=== PATIENT | male | born 1940 | race African-American/Black ===

== ENCOUNTER 2016-11-05 15:53 | Inpatient (IN) | payer OTHER ==
[~2016-11-05] VITALS: Ht 167.6 cm; Wt 68.9 kg
[~2016-11-05 15:53] MED LIST: ADVAIR HFA 45/21 AER INH; ALBUTEROL 3 ML3 ML INH; ALBUTEROL0.09 MG/A1 INH; ALBUTEROL2.5 MG/0.5 INH/SOL; AUGMENTIN 875 M1 TAB PO; CEFTIN500 MG PO; CETIRIZINE HCL10 M2 PO; CITALOPRAM HBR40 MG PO; CITALOPRAM HYDR40 MG PO; CYCLOBENZAPRINE5 M2 PO; DELTASONE20 MG PO; DUONEB 3 MG/3 ML3 ML INH/SOL; FLUTICASON0.05 MG/Ac NASB; HYDROCHLOROTHIA25 M1 PO; HYDRODIURIL 2525 MG PO; LEVAQUIN500 M1 PO; LEVAQUIN500 MG PO; MEDROL DOSEPAK1 PAC PO; METOPROLOL SUCC25 M1 PO; MONTELUKAST SOD10 MG PO; NAPROSYN500 M1 PO; NEBULIZER; OMEGA-3-ACID ETH1 GM PO; PEPCID20 M1 PO; PREDNISONE10 MG PO; PREDNISONE50 MG PO; PROAIR HFA0.09 MG/Ac INH; PROVENTIL HFA6.7 GM INH; SIMVASTATIN40 MG PO; SYMBICORT 16010.2 GM INH; VIAGRA100 M1 PO; ZITHROMAX Z-PA250 M1 PO; ZITHROMAX250 M2 PO
--- NOTE | 2016-11-05 16:41 | ED GENERAL ADULT ---
History of Present Illness General Chief Complaint: General Adult Stated Complaint: LOSS OF APPETITE, BLOOD IN STOOL Source: patient Exam Limitations: no limitations Vital Signs & Intake/Output Vital Signs & Intake/Output Vital Signs Date Time Temp Pulse Resp B/P B/P Pulse O2 O2 Flow FiO2 Mean Ox Delivery Rate 11/06 0400 97.9 79 20 128/70 11/06 0400 97.9 79 20 128/70 92 Room Air 11/06 0011 97.9 84 20 132/70 93 Room Air 11/06 0000 97.9 84 20 132/70 11/05 2318 98.5 90 20 140/70 20 11/05 2046 97.0 85 20 152/91 94 Room Air 11/05 1906 98.1 88 20 126/86 100 Room Air 11/05 1736 98.8 86 18 112/79 96 Room Air 11/05 1557 97.2 102 20 132/84 97 Room Air ED Intake and Output 11/06 0000 11/05 1200 Intake Total 100 Output Total Balance 100 Intake, IV 100 Intake, Oral 0 Patient 152 lb Weight Weight Reported by Patient Measurement Method Allergies Coded Allergies: aspirin (Mild, GI UPSET 03/25/16) Reconcile Medications Albuterol Sulfate (Ventolin Hfa) 90 MCG HFA.AER.AD 1-2 PUF INH Q4H PRN ASTHMA (Reported) Amlodipine Besylate 5 MG TABLET 1 TAB PO DAILY HEART/BP (Reported) Budesonide/Formoterol Fumarate (Symbicort 160-4.5 Mcg Inhaler) 160 MCG-4.5 MCG/ ACTUATION HFA.AER.AD 2 PUF INH BID ASTHMA (Reported) Cetirizine HCl 10 MG TABLET 1 TAB PO DAILY ALLERGIES (Reported) Citalopram Hydrobromide (Citalopram HBr) 40 MG TABLET 1 TAB PO DAILY MENTAL HEALTH (Reported) Famotidine (Pepcid) 20 MG TABLET 1 TAB PO BID gastritis Fluticasone Propionate 50 MCG/ACTUATION SPRAY.SUSP 2 SPRAY NASB DAILY ALLERGIES (Reported) Hydrochlorothiazide 25 MG TABLET 1 TAB PO DAILY DIURETIC/BP (Reported) Montelukast Sodium 10 MG TABLET 1 TAB PO DAILY ALLERGIES/ASTHMA (Reported) Triage Note: PT TO ED C/O LOSS APPETITE "FOR A WHILE". PT ALSO C/O BRB IN STOOL X 1 TODAY. DENIES N/V/D. DENIES PAIN. DENIES S/S. Triage Nurses Notes Reviewed? yes Onset: Abrupt Duration: week(s):, constant, continues in ED, getting worse Timing: single episode today Severity: mild, moderate No Modifying Factors: none HPI: 76-year-old male past medical history of hypertension and hyperlipidemia alcohol abuse presents complaining of decreased appetite, weight loss, fatigue and bright red blood per rectum. Patient states that over the past 6 months he lost 20 pounds unintentionally and has had decreased appetite. He feels he does not have a desire to eat but denies any nausea vomiting or pain with eating. He also reports associated fatigue and weakness. Yesterday he was having a bowel movement and noticed bright red blood in the toilet. He states that the blood appeared to be on the outside of the stool and that the stool was brown. He denies any history of hemorrhoids any constipation straining or pain with bowel movements. He states he's never had symptoms like this before. He denies any chest pain shortness of breath abdominal pain or any other associated symptoms. He states he had a colonoscopy many years ago and polyps were removed. He does not take blood thinners. (MESFIN SINGH PA-C) Past History Travel History Traveled to [place] past 21 day No Medical History Any Pertinent Medical History? see below for history Neurological: NONE EENT: allergies Cardiovascular: hypertension, hyperlipidemia Respiratory: asthma, bronchitis, pneumonia Gastrointestinal: NONE Hepatic: NONE Renal: NONE Musculoskeletal: NONE Psychiatric: NONE Endocrine: NONE Blood Disorders: NONE Cancer(s): NONE FAMILY DEVELOPMENT EXTENSION SPECIALIST/Reproductive: NONE Tetanus Vaccine: 03/26/16 Surgical History Surgical History: HAND SURGERY Psychosocial History Who do you live with Father Services at Home None What is your primary language Albanian Tobacco Use: Quit >30 days ago ETOH Use: heavy use Illicit Drug Use: denies illicit drug use Family History Family History, If Any: MOTHER FH: hypertension BROTHER FH: throat cancer Hx Contributory? No (MESFIN SINGH PA-C) Review of Systems Review of Systems Constitutional: Reports: see HPI, weakness, unexplained weight loss. EENTM: Reports: no symptoms. Respiratory: Reports: no symptoms. Cardiovascular: Reports: no symptoms. GI: Reports: see HPI, bloody stool. Genitourinary: Reports: no symptoms. Musculoskeletal: Reports: no symptoms. Skin: Reports: no symptoms. Neurological/Psychological: Reports: no symptoms. Hematologic/Endocrine: Reports: no symptoms. Immunologic/Allergic: Reports: no symptoms. All Other Systems: Reviewed and Negative (SAMANTHA PARRA,MESFIN) Physical Exam Physical Exam General Appearance: well developed/nourished, no apparent distress, alert, awake Rectal: normal rectal tone, blood streaked stool (BROWN) Comments: General: Hemodynamically stable. Afebrile. Well-developed well-nourished person in no acute distress. Head: Atraumatic, normocephalic Eyes: EOMI bilaterally, PERRLA, conjunctiva are not injected, no discharge, no nystagmus, fundus grossly normal bilaterally Nose: Atraumatic, no rhinorrhea, mucosa is not erythematous, no epistaxis. Sinuses are non-tender Ears: TM pearly flannery color bilaterally, external canal is clear, no discharge, hearing is normal Mouth: Appropriate dentition, no gingival bleeding, moist mucus membranes, no oral lesions, tonsils not erythematous or enlarged and free of exudate. Uvula rises midline. Neck: Supple, full active ROM, no lymphadenopathy, no midline tenderness to palpation, no thyromegaly, no tracheal deviation. Back: Non-tender, full active ROM, no scoliosis, no CVA tenderness Cardiovascular: regular rate and rhythm, no murmurs, rubs, or gallops. No JVD Respiratory: Chest is nontender. Regular respiratory rate and effort. No accessory muscle use. Lungs clear to auscultation bilaterally. Abdomen: Soft, non-tender, non-distended, no organomegaly. No rebound tenderness or guarding. Normoactive bowel sounds. Extremities: No edema. No gross deformities. No joint swelling. No calf swelling or tenderness. Full active and passive ROM. Strength 5/5 in upper and lower extremities. Peripheral pulses 2+ bilaterally, Patellar DTR 2+ Neuro: No confusion. Motor and sensory function is intact. Appropriate gait. Cerebellar function intact. Skin: Warm and dry. Appropriate turgor. No lesions or bruising. No appreciable rash on exposed skin. Core Measures ACS in differential dx? No CVA/TIA Diagnosis: No Severe Sepsis Present: No Septic Shock Present: No (SAMANTHA PARRA,MESFIN) Progress Differential Diagnoses I considered the following diagnoses in my evaluation of the patient: [Colon cancer, hemorrhoids, orthostatic hypotension, anemia, diverticulitis, AVM,] Plan of Care: Orders Procedure Date/time Status Nothing by Mouth 11/06 B Active CBC WITHOUT DIFFERENTIAL 11/06 06 Active BASIC ELECTROLYTES PLUS BUN&CR 11/06 06 Active Lab Add-on Test 11/06 UNK Active Hemoccult 11/05 2310 Complete CBC WITHOUT DIFFERENTIAL 11/05 2310 Complete Vital Signs 11/05 222 Active Teach/Educate 11/05 2222 Active Pain Treatment and Response 11/05 2222 Active Nutritional Intake, Monitor 11/05 2222 Active Isolation 11/05 2222 Active Intake & Output 11/05 2222 Active Patient Care Conference 11/05 2222 Active Activity/Ambulation 11/05 2222 Active Pathway - chart 11/05 2106 Active TRC EVALUATION (GEN) 11/05 2058 Active Pathway - chart 11/05 2058 Active House Staff 11/05 2058 Active TYPE & SCREEN (NOT X-MATCH) 11/05 2058 Complete Patient Data 11/05 2013 Active Add-on Test (ER Only) 11/05 182 Active OXYGEN SETUP (GEN) 11/05 182 Active Saline Lock 11/05 1822 Active Admit to inpatient 11/05 1822 Active Vital Signs 11/05 1822 Active Activity/Ambulation 11/05 1822 Active Code Status 11/05 1822 Active TOTAL IRON BINDING CAPACITY 11/05 1700 Complete MAGNESIUM 11/05 1700 Complete FERRITIN 11/05 1700 Complete SERUM IRON 11/05 1700 Complete ETHANOL 11/05 1700 Complete MISTAKE 11/05 1651 Active TROPONIN LEVEL 11/05 1651 Complete PROTHROMBIN TIME 11/05 1651 Complete COMPREHENSIVE METABOLIC PANEL 11/05 1651 Complete CBC WITHOUT DIFFERENTIAL 11/05 1651 Complete EKG 11/05 1651 Active Intake & Output 11/05 1627 Active VTE Mechanical Prophylaxis 11/05 UNK Active Vital Signs 11/05 UNK Complete Nursing Misc 11/05 UNK Active Hemoccult 11/05 UNK Active CIWA 11/05 UNK Active Current Medications Sig/Ana Start time Last Medication Dose Stop Time Status Admin Montelukast Sodium 10 MG 2200 11/06 2200 AC (Singulair) Amlodipine Besylate 5 MG DAILY 11/06 1000 CAN (Norvasc) Citalopram 40 MG DAILY 11/06 1000 AC Hydrobromide (Celexa) Fluticasone 2 SPRAY DAILY 11/06 1000 AC Propionate (Flonase) Hydrochlorothiazide 25 MG DAILY 11/06 1000 CAN (Hydrodiuril) Loratadine 10 MG DAILY 11/06 1000 AC (Claritin) Pantoprazole Sodium 40 MG DAILY 11/06 1000 AC (Protonix) Thiamine HCl 100 MG DAILY 11/06 1000 AC (Vitamin B1) Lorazepam 0 Q1P PRN 11/06 0045 AC (Ativan) Lorazepam 1 MG BID 11/05 2309 AC 11/06 (Ativan) 0047 Albuterol Sulfate 2 PUF Q4 11/05 2199 CAN (Ventolin) Budesonide/ 2 PUF BID 11/05 2200 AC 11/06 Formoterol Fumarate 0047 (Symbicort) Acetaminophen 650 MG Q6P PRN 11/05 2114 AC (Tylenol) Acetaminophen 1,000 MG Q6 PRN 11/05 2114 AC (Ofirmev) Morphine Sulfate 2 MG Q4P PRN 11/05 2114 AC (Morphine) Sodium Chloride 1,000 ML .Q10H 11/05 2100 AC 11/05 (Normal Saline 0.9%) 2226 Albuterol Sulfate 3 ML ONCE ONE 11/05 2029 CAN (Proventil) 11/05 2030 Ipratropium [place] 2.5 ML ONCE ONE 11/05 2029 CAN (Atrovent) 11/05 2030 Laboratory Tests 11/06/16 0625: Sodium Pending, Potassium Pending, Chloride Pending, Carbon Dioxide Pending, Anion Gap Pending, BUN Pending, Creatinine Pending, BUN/Creatinine Ratio Pending , CBC w Diff Pending, WBC Pending, RBC Pending, Hgb Pending, Hct Pending, MCV Pending, MCH Pending, RDW Pending, Plt Count Pending, MPV Pending, PUBS MCHC Pending 11/06/16 0140: CBC w Diff NO MAN DIFF REQ, RBC 4.37 L, MCV 92.9, MCH 31.1 H, RDW 14.5, MPV 9.0, Gran % 59.4, Lymphocytes % 29.3, Monocytes % 8.5, Eosinophils % 2.2, Basophils % 0.6, Absolute Granulocytes 2.6, Absolute Lymphocytes 1.3, Absolute Monocytes 0.4, Absolute Eosinophils 0.1, Absolute Basophils 0, PUBS MCHC 33.5 11/05/16 1700: Anion Gap 10, Estimated GFR > 60, BUN/Creatinine Ratio 22.5, Glucose 98, Calcium 9.7, Magnesium 2.1, Iron 180, TIBC 272, Ferritin 95.0, Total Bilirubin 0.8, AST 67 H, ALT 46, Alkaline Phosphatase 115, Troponin I < 0.01, Total Protein 7.2, Albumin 4.3, Globulin 2.9, Albumin/Globulin Ratio 1.5, PT 10.2, INR 0.97, CBC w Diff NO MAN DIFF REQ, RBC 4.63 L, MCV 93.5, MCH 30.6, RDW 14.7 H, MPV 8.9, Gran % 67.9, Lymphocytes % 19.9 L, Monocytes % 9.9 H, Eosinophils % 1.5, Basophils % 0.8, Absolute Granulocytes 3.0, Absolute Lymphocytes 0.9 L, Absolute Monocytes 0.4, Absolute Eosinophils 0.1, Absolute Basophils 0, PUBS MCHC 32.8 L, Serum Alcohol < 10.0 5 PM: Patient seen and evaluated. He has gross blood on the rectal exam no signs of hemorrhoids. He'll have basic blood work orthostatics EKG and troponin. Patient is orthostatic. He'll be given a liter normal saline. This plus the bright red blood per rectum is concerning for GI bleed . Patient will have a CT scan of his abdomen and pelvis with contrast to rule out colon cancer or diverticulitis. Patient will likely require admission due to bright red blood per rectum and orthostasis. GI will be called called for their input. Spoke with Dr. Chau from GI. He feels that the patient will be okay to go to the floor. His vital signs are currently stable he only had one episode he is asymptomatic. patient needs to be monitored if there is any concern for further bleeding he needs to go to ICU and be scoped immediately otherwise it can wait until Monday. HospitalisT paged. Case discussed with Dr. TAMAYO and he agrees with the plan (SAMANTHA PARRA,MESFIN) Diagnostic Imaging: Viewed by Me: CT Scan. Discussed w/RAD: CT Scan. Initial ED EKG: sinus rhythm, borderline t abn anterior leads, borderline prolonged qt Comments: PATIENT: TYSON FLORES SR PRESENT AGE: 76 PATIENT ACCOUNT NO: [id number] : 41 LOCATION: [facility] ORDERING PHYSICIAN: MESFIN SINGH PA-C SERVICE DATE: 11/05/16 EXAM TYPE: CAT - CT ABD & PELVIS W IV CONTRAST EXAMINATION: CT ABDOMEN AND PELVIS with CONTRAST CLINICAL INFORMATION: Hematochezia.] Orthostasis. Weight loss. Colon cancer. Diverticulitis. COMPARISON: CT pelvis 09/26/2015 TECHNIQUE: Helical CT scan of abdomen and pelvis. IV contrast: 95 mL Optiray 320 Oral contrast: None Reconstruction: Coronal and sagittal reformatted images performed at CT scanner by the technologist. FINDINGS: LUNG BASES: The visualized lung bases are unremarkable. LIVER, GALLBLADDER, AND BILIARY TREE: 2 cm hepatic cyst central right lobe of liver. No suspicious liver lesion. The gallbladder is unremarkable with no evidence of radiopaque gallstones, gallbladder wall thickening, or obvious pericholecystic inflammatory changes. PANCREAS: No acute change of the pancreas. No mass. No pancreatic duct dilatation. SPLEEN: Spleen normal in size and contour. No focal lesion. ADRENAL GLANDS: Adrenal glands are normal in size. No focal mass. KIDNEYS AND URETERS: 2.7 cm renal cyst midpole right kidney. No renal or ureteral calculus. No hydronephrosis. BLADDER: Unremarkable. GASTROINTESTINAL TRACT: The small and large bowel are unremarkable. No diverticula of the colon. The appendix is unremarkable. MESENTERY: No focal inflammation. No free fluid. No free air. ABDOMINAL WALL: Surgical mass right inguinal region. No recurrent hernia. LYMPH NODES: Normal. VASCULAR: Aorta is tortuous with calcification of wall. No aneurysm. PELVIC VISCERA: Prostate measures 5.2 cm transverse. OSSEOUS STRUCTURES: Unremarkable. IMPRESSION: No acute abnormality CT scan abdomen pelvis. DICTATED BY: DONNA AMARO MD DATE/TIME DICTATED:11/05/161845 AIR DUCT MECHANIC:JI DATE/TIME TRANSCRIBED:11/05/161845 (SAMANTHA PARRA,MESFIN) Departure Departure Disposition: STILL A PATIENT Condition: Stable Clinical Impression Primary Impression: Orthostatic hypotension Secondary Impressions: Lower GI bleed Referrals: ZACH ALEXANDER MD (PCP/Family) Departure Forms: Customer Survey General Discharge Information Admission Note Spoke With: LITZY COUGHLIN MD Documentation of Exam: Documentation of any treatments & extenuating circumstances including Concerns Regarding Discharge (functional status, medication knowledge or non-compliance, living conditions, etc.) that warrant an admission rather than observation: [ Serial labs, GI consult, IV fluids, monitoring of vital signs, tilt table test, colonoscopy] (MESFIN SINGH PA-C) PA/POULTRY SEXER Co-Sign Statement Statement: ED Attending supervision documentation- x I saw and evaluated the patient. I have also reviewed all the pertinent lab results and diagnostic results. I agree with the findings and the plan of care as documented in the PA's/POULTRY SEXER's documentation. [] I have reviewed the ED Record and agree with the PA's/POULTRY SEXER's documentation. [] Additions or exceptions (if any) to the PAs/POULTRY SEXER's note and plan are summarized below: [] (RONI GLOVER,MANUELITO) Critical Care Note Critical Care Note Critical Care Time: non-applicable (MESFIN SINGH PA-C)
[2016-11-05 17:15] LABS: ABSOLUTE BASOPHIL COUNT 0 /CUMM (0.0-0.2); ABSOLUTE EOSINOPHIL COUNT 0.1 /CUMM (0.0-0.7); ABSOLUTE LYMPH COUNT 0.9 /CUMM (1.2-3.4); ABSOLUTE MONOCYTE COUNT 0.4 /CUMM (0.10-0.60); BASOPHIL % 0.8 % (0.0-2.0); EOSINOPHIL % 1.5 % (0-5); GRANULOCYTE % 67.9 % (42.2-75.2); HEMATOCRIT 43.3 % (42-52); MEAN CORPUSCULAR HGB 30.6 PG (27.0-31.0); MEAN CORPUSCULAR HGB CONC 32.8 G/DL (33.0-37.0); MEAN CORPUSCULAR VOLUME 93.5 FL (80.0-94.0); MEAN PLATELET VOLUME 8.9 FL (7.4-10.4); PLATELET COUNT 168 /CUMM (130-400); RBC DISTRIBUTION WIDTH 14.7 % (11.5-14.5); RED BLOOD CELL CT 4.63 /CUMM (4.70-6.10); WHITE BLOOD CELL COUNT 4.5 /CUMM (4.8-10.8)
[2016-11-05 17:18] LABS: PT 10.2 SEC (9.4-12.5)
[2016-11-05] MEDS ORDERED: FLUTICASONE PRO16 GM NASB (17:43)
[2016-11-05] MEDS ORDERED: VENTOLIN HFA18 GM INH (17:43)
[2016-11-05] MEDS ORDERED: SYMBICORT 16010.2 GM INH (17:44)
[2016-11-05] MEDS ORDERED: AMLODIPINE BESYL5 M1 PO (17:45)
[2016-11-05] MEDS ORDERED: MONTELUKAST SOD10 M1 PO (17:45)
[2016-11-05] MEDS ORDERED: CETIRIZINE HCL10 M2 PO (17:45)
--- NOTE | 2016-11-05 18:58 | CT SCAN REPORT ---
EXAMINATION: CT ABDOMEN AND PELVIS with CONTRAST CLINICAL INFORMATION: Hematochezia.] Orthostasis. Weight loss. Colon cancer. Diverticulitis. COMPARISON: CT pelvis 09/26/2015 TECHNIQUE: Helical CT scan of abdomen and pelvis. IV contrast: 95 mL Optiray 320 Oral contrast: None Reconstruction: Coronal and sagittal reformatted images performed at CT scanner by the technologist. FINDINGS: LUNG BASES: The visualized lung bases are unremarkable. LIVER, GALLBLADDER, AND BILIARY TREE: 2 cm hepatic cyst central right lobe of liver. No suspicious liver lesion. The gallbladder is unremarkable with no evidence of radiopaque gallstones, gallbladder wall thickening, or obvious pericholecystic inflammatory changes. PANCREAS: No acute change of the pancreas. No mass. No pancreatic duct dilatation. SPLEEN: Spleen normal in size and contour. No focal lesion. ADRENAL GLANDS: Adrenal glands are normal in size. No focal mass. KIDNEYS AND URETERS: 2.7 cm renal cyst midpole right kidney. No renal or ureteral calculus. No hydronephrosis. BLADDER: Unremarkable. GASTROINTESTINAL TRACT: The small and large bowel are unremarkable. No diverticula of the colon. The appendix is unremarkable. MESENTERY: No focal inflammation. No free fluid. No free air. ABDOMINAL WALL: Surgical mass right inguinal region. No recurrent hernia. LYMPH NODES: Normal. VASCULAR: Aorta is tortuous with calcification of wall. No aneurysm. PELVIC VISCERA: Prostate measures 5.2 cm transverse. OSSEOUS STRUCTURES: Unremarkable. IMPRESSION: No acute abnormality CT scan abdomen pelvis.
--- NOTE | 2016-11-05 20:33 | History & Physical ---
CHARMAINE PASCUAL MD 11/05/162031: General Information and HPI MD Statement: I have seen and personally examined TYSON FLORES SR and documented this H&P. The patient is a 76 year old M who presented with a patient stated chief complaint of [bright red blood per rectum]. Source of Information: patient, family, old records History of Present Illness: Pt is a 76 yo male with a pmh significant for HTN, hyperlipidemia, COPD, GERD, alcohol abuse, internal hemerrhoids. He presented to ED complaining of one episode of blood coated stool yesterday afternoon. The pt reports that he had no associated abdominal pain, but did strain more than usual during this bowel movement. He has had one BM since then with no blood on the stool, or on tissue paper. Pt denies any nausea, vomiting, fever, chills, constipation, diarrhea, chest pain, palipitations, shortness of breath, or abdominal pain. He is complaining of a mild headache, but claims he gets them regularly and this is not out of the ordinary. He drinks alcohol everyday, up to 2 bottles of vodka per day, and as per daughter, the weightloss began when his drinking increased, and he began drinking as a substitute for his meals. He is an everyday smoker. Allergies/Medications Allergies: Coded Allergies: aspirin (Mild, GI UPSET 03/25/16) Home Med list Albuterol Sulfate (Ventolin Hfa) 90 MCG HFA.AER.AD 1-2 PUF INH Q4H PRN ASTHMA (Reported) Amlodipine Besylate 5 MG TABLET 1 TAB PO DAILY HEART/BP (Reported) Budesonide/Formoterol Fumarate (Symbicort 160-4.5 Mcg Inhaler) 160 MCG-4.5 MCG/ ACTUATION HFA.AER.AD 2 PUF INH BID ASTHMA (Reported) Cetirizine HCl 10 MG TABLET 1 TAB PO DAILY ALLERGIES (Reported) Citalopram Hydrobromide (Citalopram HBr) 40 MG TABLET 1 TAB PO DAILY MENTAL HEALTH (Reported) Famotidine (Pepcid) 20 MG TABLET 1 TAB PO BID gastritis Fluticasone Propionate 50 MCG/ACTUATION SPRAY.SUSP 2 SPRAY NASB DAILY ALLERGIES (Reported) Hydrochlorothiazide 25 MG TABLET 1 TAB PO DAILY DIURETIC/BP (Reported) Montelukast Sodium 10 MG TABLET 1 TAB PO DAILY ALLERGIES/ASTHMA (Reported) Past History Travel History Traveled to [place] past 21 day No Medical History Neurological: NONE EENT: allergies Cardiovascular: hypertension, hyperlipidemia Respiratory: asthma, bronchitis, COPD, pneumonia Gastrointestinal: GERD Hepatic: NONE Renal: NONE Musculoskeletal: NONE Psychiatric: NONE Endocrine: NONE Blood Disorders: NONE Cancer(s): NONE 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 Denies: chills, diaphoresis, fever, malaise, weakness. EENTM: Reports: visual changes, nasal congestion. Denies: eye pain, throat pain. Cardiovascular: Denies: chest pain, palpitations, syncope. Respiratory: Denies: cough, hemoptysis, short of breath. GI: Reports: bloody stool. Denies: abdominal pain, constipation, diarrhea, distention, melena, nausea, vomiting. Genitourinary: Denies: dysuria, hematuria, nocturia. Musculoskeletal: Denies: joint pain, joint swelling, muscle pain. Skin: Denies: change in skin color, erythema, lesions. Neurological/Psychological: Reports: headache. Denies: numbness, tingling. Exam & Diagnostic Data Last 24 Hrs of Vital Signs/I&O Vital Signs Date Time Temp Pulse Resp B/P B/P Pulse O2 O2 Flow FiO2 Mean Ox Delivery Rate 11/05 2046 97.0 85 20 152/91 94 Room Air 11/05 1906 98.1 88 20 126/86 100 Room Air 11/05 1736 98.8 86 18 112/79 96 Room Air 11/05 1557 97.2 102 20 132/84 97 Room Air Intake & Output 11/05 1600 11/05 0800 11/05 0000 Intake Total Output Total Balance Patient 152 lb Weight Weight Estimated Measurement Method Physical Exam General Appearance Alert, Oriented X3, Cooperative, No Acute Distress Skin No Rashes, No Breakdown, No Significant Lesion Skin Temp/Moisture Exam: Warm/Dry Sepsis Skin Exam (color): Normal for Ethnicity HEENT Atraumatic, PERRLA, EOMI, mucous membrane is slightly dry, poor dentition Neck Supple, No JVD Lymphatic Cervical nl Cardiovascular Regular Rate, Normal S1, No Murmurs Lungs Clear to Auscultation, Normal Air Movement Abdomen Normal Bowel Sounds, Soft, No Tenderness, No Hepatospenomegaly, No Masses Neurological Normal Speech, Strength at 5/5 X4 Ext, Sensation Intact, Cranial Nerves 3-12 NL Extremities No Clubbing, No Cyanosis, No Edema, Normal Pulses, No Tenderness/ Swelling Vascular Normal Pulses, Pulses Symmetrical Sepsis Peripheral Pulse Location: Dorsalis Pedis Sepsis Peripheral Pulse Exam: Normal Sepsis Cap Refill Exam: <2 Sec Rectal Guiac Negative, No Fissures, No Hemorrhoids Last 24 Hrs of Labs/Casey: Laboratory Tests 11/05/16 1700: Anion Gap 10, Estimated GFR > 60, BUN/Creatinine Ratio 22.5, Glucose 98, Calcium 9.7, Magnesium 2.1, Total Bilirubin 0.8, AST 67 H, ALT 46, Alkaline Phosphatase 115, Troponin I < 0.01, Total Protein 7.2, Albumin 4.3, Globulin 2.9, Albumin/ Globulin Ratio 1.5, PT 10.2, INR 0.97, CBC w Diff NO MAN DIFF REQ, RBC 4.63 L, MCV 93.5, MCH 30.6, RDW 14.7 H, MPV 8.9, Gran % 67.9, Lymphocytes % 19.9 L, Monocytes % 9.9 H, Eosinophils % 1.5, Basophils % 0.8, Absolute Granulocytes 3.0, Absolute Lymphocytes 0.9 L, Absolute Monocytes 0.4, Absolute Eosinophils 0.1, Absolute Basophils 0, PUBS MCHC 32.8 L, Serum Alcohol < 10.0 Diagnostic Data EKG Results sinus rhythm [place] 164 QT 408 QTC [address] ABDOMEN AND PELVIS with CONTRAST IMPRESSION: No acute abnormality CT scan abdomen pelvis. Assessment/Plan Assessment: Pt is a 76 yo male with a pmh significant for HTN, hyperlipidemia, COPD, GERD, alcohol abuse, internal hemerrhoids. He presented to ED complaining of one episode of blood coated stool yesterday afternoon. no associated abdominal pain, but did strain more than usual during this bowel movement. Pt denies any nausea , vomiting, fever, chills, constipation, diarrhea, chest pain, palipitations, shortness of breath, or abdominal pain. #Bright Red Blood Per Rectum, possibly due to diverticulosis or internal hemorrhoids, H/H 14.2/43.3, But pt is orthostatic positive B/P Lying 141/87 Pulse 84,B/P Sitting 143/83 Pulse 84, B/P Standing 107/75 Pulse 93. Must reassess after rehydration. varicies unlikely due to lack of history of melena or hematemisis. CT abdomen was normal. - Admit to Gen med - NPO - trend CBC - consult GI in the morning - IVF 100ml/hr, 1 L - guiac all stools - Iron Studies - type and screen - two wide bore IV peripherally #alcohol abuse AST 67, ALT 46. Drinks 1-2 bottles of vodka daily, has been skipping meals. - CIWA protocol - ativan 1 mg PO BID - thaimine 200 mg PO 1x, 100 mg daily starting tomorrow #DVT Prophylaxis - ALPs #Code status - Full Code As Ranked By This Provider Problem List: 1. Rectal bleeding 2. Alcohol abuse Core Measures/Miscellaneous Acute Coronary Syndrome ACS Diagnosis: No Cerebrovascular Accident CVA/TIA Diagnosis: No Congestive Heart Failure CHF Diagnosis: No VTE (View Protocol) VTE Risk Factors: Age > 40, Smoking No [facility] VTE prophylaxis d/t: No contraindications No VTE Pharm Prophylaxis d/t: Active bleeding VTE Diagnosis: No VTE Type: NONE VTE Confirmed by (Test): NONE Sepsis (View Protocol) Severe Sepsis Present: No Septic Shock Septic Shock Present: No Miscellaneous Documentation Attending Case Discussed With: LITZY COUGHLIN MD Primary Care Physician: ZACH ALEXANDER MD Patient sees these Specialists Dr. Bustos, Cardiology Level of Patient Care: General Medicine Consults Needed: Consulting Specialty: General Internal Medicine LITZY COUGHLIN 11/05/16 2301: Attending Review Statement Attending Statement Attending MD Statement: examined this patient, discuss w/resident/PA/WINDOW SHADE CLOTH SEWER, agreed w/resident/PA/WINDOW SHADE CLOTH SEWER, reviewed EMR data (avail), reviewed images, amended to note Attending Assessment/Plan: CC: Bright red blood in stool PMH: HTN, HLD, allergies, COPD, alcohol use Patient came to ER after one episode of right red blood in his stool. Patient denied any abdominal pain, chest pain, dizziness, palpitations, syncope, presyncope before or after this episode. Patient never had similar complaints in the past. Patient did not have any black colored stool, vomiting, blood in vomiting in the past. Patient endorses loss of appetite since a while and weight loss which is unintentional. He denies any night sweats. Last colonoscopy was few years back according to him when they found some polyps. Patient drinks vodka every day, does not quantify. Vitals: Afebrile, pulse 102 on arrival improved to 86, RR 20, blood pressure 132 /84, saturating well on room air. Orthostatic vitals: B/P Lying 141/87 Pulse 84 B/P Sitting 143/83 Pulse 84 B/P Standing 107/75 Pulse 93 On exam: A O 3, cooperative, no acute distress, neck supple, JVD normal, no lymphadenopathy, mucosa moist, no focal neurological deficit, no dependent edema , no obvious skin rashes or inflammation CVS: S1-S2, RRR. RS: Clear to auscultate bilaterally. Abdomen: Soft, NT, ND, bowel sounds present., ? Questionable fluid thrill Rectal examination done in ER: gross blood on the rectal exam no signs of hemorrhoids. Repeat rectal : negative for blood and FOBT negative. Labs: WBC 4.5, hemoglobin 14.2, hematocrit 43.3, RDW 14.7, MCV 93.5, platelets 165, sodium 137, potassium 3.4, chloride 96, bicarbonate 30, BUN 18, creatinine 0.8, anion gap 10, AST 63 otherwise LFT unremarkable, troponin less than 0.01, INR 0.97, all called level less than 10 CT abdomen and pelvis: No acute abnormality CT scan abdomen pelvis. A and P 76 year old male presented in ER for one episode of bright red blood in stool, not associated with any cramping abdominal pain before or after bloody bowel movement. Not associated with palpitation, chest pain, dizziness, syncope or presyncope. No history of black colored stool or recurrent vomiting with blood or black colored contained. Patient endorses gradual weight loss which is unintentional and decreased appetite. Patient drinks vodka every day, doesn't quantify. Examination is unremarkable except orthostatic vitals positive for hypotension, rectal examination done by ER staff positive for blood. Even though patient's hemoglobin and hematocrit is normal for now he might drop down after IV fluids, but he does not have any microcytosis or increased RDW, suggestive of not a chronic blood loss. GI was called from ER. Given his history of alcohol, chronic weight loss and loss of appetite he would benefit from EGD and colonoscopy, inpatient versus outpatient. Last colonoscopy 2010 polyps were removed benign. No stigmata of cirrhosis, mild transaminitis, INR and albumin normal. + Lower GI bleed + Orthostatic hypotension + alcoholism + History of HTN, HLD, allergies, COPD, alcohol use - Admit to general medicine - Continue gentle hydration - Type and screen 2 units of PRBC - 2 wide bore peripheral IV lines - Nothing by mouth - troponin and Ekg x1 (repat in 6 hour to r/o demand) - IV Protonix 40 mg daily - Hold home antihypertensives, continue rest of the medications - Repeat H&H 6 hours from the previous lab, Then repeat labs in the a.m. - Transfuse if hypotensive or drop in H&H below 8 - GI consult in a.m. - Iron studies with ferritin, TIBC, transferrin, iron - Ativan 1 mg po Bid for tomorrow : taper down if not actively withdrawing - PRN Ativan according to CIWA protocol - replace thiamine and potassium - DVT prophylaxis with Alps only JAZIEL SAAVEDRA MD 11/06/16 0005: Resident Review Statement Resident Statement: examined this patient, discussed with epidemiology internship, agreed with epidemiology internship, discussed with family, reviewed EMR data (avail), discussed with nursing , reviewed images Other Findings: 76-year-old male with past medical history of internal hemorrhoids, H pylori gastritis, antral gastritis, hypertension, hyperlipidemia, alcohol abuse, anxiety, COPD, seasonal allergies, presented to the emergency department for 1 episode of bright red blood per rectum and anorexia, weight loss and fatigue. Patient had one episode of painless bowel movement with bright red blood over the stool, not mixed with it yesterday, not associated with pain abdomen, nausea , vomiting, fever, chills, sick contacts, abdominal distention. His last cancer screening colonoscopy was in February 2011, which showed internal hemorrhoid, polyp that was excised, and some diverticulosis. His last upper GI endoscopy was in 2016, which showed gastritis and no varices, both were done in by Dr Christoph Mcallister, but he does not follow him anymore. In the ED, his pulse was 102, blood pressure 132/84, respiration 20, temperature 97.2 and SPO2 97% on room air. His pulse at the time of examination was 88. He appeared stable with relatively benign physical examination. Digital rectal examination done by the ED staff was guaiac-positive, however done by the admitting staff was negative. CT abdomen does not show any extensive diverticulosis, mass, or obviopus source of bleeding. Patient received 1 L of normal saline, IV PPI, nebulization, in the ED. He did not notice blood in his stool pain he had a bowel movement in the ED. He is currently being admitted in the general medical floor for the management of following issues: #Lower GI bleeding, bright red blood per rectum Patient gives history of bright red blood per rectum, indicating floor GI bleeding, with stable vitals. CT abdpmen/pelvis is negative. His orthostatics were positive in the ED, and first set of H&H was within normal limits, but this could be due to hemoconcentration. He will require close monitoring and repeat lab works. * Close monitoring of vitals, and watch for bleeding per rectum * Input-output monitoring * Repeat CBC 6 hours after the initial one and again in the morning * Have 2 large bore IV cannula in place in anticipation * Type and screen blood in anticipation * Nothing by mouth for now for bowel rest * IV fluid at 100 mL per hour, monitor for now. To reassess in the morning * IV PPI pantoprazole 40 mg IV daily * Iron studies * Guaiac all stool, given there was radiation in findings in the last examination. Stop examining stool for blood after 2 readings. * GI consultation in the morning #History of alcohol abuse Patient gives history of daily alcohol/vodka consumption of 1 L in the last drink was yesterday. We'll have to monitor for withdrawal symptoms. * Watch patient for symptoms of alcohol withdrawal according to CIWA protocol * Oral lorazepam 1 mg every 12 hours for now * 1 dose of thiamine 100 mg orally now and 100 mg daily to continue #Continue home medications of which is montelucast, cetrizine, citalopram, Symbicort and add TRC. #Antihypertensives on hold. #Diet: NPO for now, will reasses in AM #DVT ppx: ALPS only, considering ongoing bleeding #Code status: Full code
--- NOTE | 2016-11-05 23:03 | Admission Certification ---
Admission Certification Certification Statement - As attending physician, I certify that at the time of - admission, based on clinical presentation, severity of - symptoms, need for further diagnostic testing and - therapeutic interventions, and risk of adverse outcomes - without in-hospital treatment, in my clinical assessment, - this patient requires an acute hospital stay for a minimum - of two nights or longer. I have also considered psychsocial - factors such as support system, advanced age, financial - issues, cognitive issues, and failed out-patient treatments, - past re-admission history, safety of patient, and lack of - compliance as applicable. Specific rationale supporting this admission is: GI bleed
[2016-11-05 23:18] VITALS: BP 140/70
[2016-11-06] VITALS: BP 132/70
[2016-11-06 00:11] VITALS: BP 132/70
[2016-11-06 01:52] LABS: ABSOLUTE BASOPHIL COUNT 0 /CUMM (0.0-0.2); ABSOLUTE EOSINOPHIL COUNT 0.1 /CUMM (0.0-0.7); ABSOLUTE GRANULOCYTE CT 2.6 /CUMM (1.4-6.5); ABSOLUTE LYMPH COUNT 1.3 /CUMM (1.2-3.4); ABSOLUTE MONOCYTE COUNT 0.4 /CUMM (0.10-0.60); BASOPHIL % 0.6 % (0.0-2.0); EOSINOPHIL % 2.2 % (0-5); GRANULOCYTE % 59.4 % (42.2-75.2); HEMATOCRIT 40.6 % (42-52); MEAN CORPUSCULAR HGB 31.1 PG (27.0-31.0); MEAN CORPUSCULAR HGB CONC 33.5 G/DL (33.0-37.0); MEAN CORPUSCULAR VOLUME 92.9 FL (80.0-94.0); PLATELET COUNT 172 /CUMM (130-400); RBC DISTRIBUTION WIDTH 14.5 % (11.5-14.5); RED BLOOD CELL CT 4.37 /CUMM (4.70-6.10); WHITE BLOOD CELL COUNT 4.3 /CUMM (4.8-10.8)
[2016-11-06 04:00] VITALS: BP 128/70
[2016-11-06 07:51] LABS: ABSOLUTE BASOPHIL COUNT 0 /CUMM (0.0-0.2); ABSOLUTE EOSINOPHIL COUNT 0.1 /CUMM (0.0-0.7); ABSOLUTE GRANULOCYTE CT 2.4 /CUMM (1.4-6.5); ABSOLUTE MONOCYTE COUNT 0.4 /CUMM (0.10-0.60); HEMATOCRIT 38.5 % (42-52); MEAN CORPUSCULAR HGB 31.2 PG (27.0-31.0); MEAN CORPUSCULAR HGB CONC 33.3 G/DL (33.0-37.0); MEAN CORPUSCULAR VOLUME 93.6 FL (80.0-94.0); MEAN PLATELET VOLUME 9.6 FL (7.4-10.4); PLATELET COUNT 150 /CUMM (130-400); RBC DISTRIBUTION WIDTH 14.4 % (11.5-14.5); RED BLOOD CELL CT 4.11 /CUMM (4.70-6.10); WHITE BLOOD CELL COUNT 3.9 /CUMM (4.8-10.8)
[2016-11-06 08:12] LABS: BASOPHIL % 0.9 % (0.0-2.0); EOSINOPHIL % 2.6 % (0-5); GRANULOCYTE % 61.9 % (42.2-75.2)
--- NOTE | 2016-11-06 10:22 | PN- Housestaff ---
See Addendum Subjective Follow-up For: Gi bleed, EtOH Subjective: No over night events. He is feeling ok this morning, hungry. He had one episode of bright red blood per rectum last night. Was not significant amount though. No complaints. Review of Systems Constitutional: Reports: no symptoms. EENTM: Reports: no symptoms. Cardiovascular: Reports: no symptoms. Respiratory: Reports: no symptoms. Gastrointestinal: Reports: see HPI. Genitourinary: Reports: no symptoms. Musculoskeletal: Reports: no symptoms. Skin: Reports: no symptoms. Neurological/Psychological: Reports: no symptoms. Hematologic/Endocrine: Reports: no symptoms. Immunologic/Allergic: Reports: no symptoms. Objective Last 24 Hrs of Vital Signs/I&O Vital Signs Date Time Temp Pulse Resp B/P B/P Pulse O2 O2 Flow FiO2 Mean Ox Delivery Rate 11/06 0940 Room Air Room Air 11/06 0400 97.9 79 20 128/70 11/06 0400 97.9 79 20 128/70 92 Room Air 11/06 0011 97.9 84 20 132/70 93 Room Air 11/06 0000 97.9 84 20 132/70 11/05 2318 98.5 90 20 140/70 20 11/05 2046 97.0 85 20 152/91 94 Room Air 11/05 1906 98.1 88 20 126/86 100 Room Air 11/05 1736 98.8 86 18 112/79 96 Room Air 11/05 1557 97.2 102 20 132/84 97 Room Air Intake & Output 11/06 1600 11/06 0800 11/06 0000 Intake Total 1160 100 Output Total Balance 1160 100 Intake, IV 800 100 Intake, Oral 360 0 Number 1 Bowel Movements Patient 152 lb Weight Weight Reported by Patient Measurement Method Physical Exam General Appearance: Alert, Oriented X3, Cooperative, No Acute Distress, Mild Distress Cardiovascular: Regular Rate, Normal S1, Normal S2 Lungs: Clear to Auscultation Abdomen: Normal Bowel Sounds, Soft, No Tenderness Extremities: No Edema Current Medications: Current Medications Sig/Ana Start time Last Medication Dose Route Stop Time Status Admin Acetaminophen 650 MG Q6P PRN 11/05 2114 AC PO Acetaminophen 1,000 MG Q6 PRN 11/05 2114 AC IV Albuterol Sulfate 2 PUF Q4 11/05 2199 CAN INH Albuterol Sulfate 3 ML ONCE ONE 11/05 2044 DC 11/05 INH 11/05 Albuterol Sulfate 3 ML ONCE ONE 11/05 2030 CAN INH 11/05 2030 Amlodipine Besylate 5 MG DAILY 11/06 1000 CAN PO Budesonide/ 2 PUF BID 11/05 2200 AC 11/06 Formoterol Fumarate INH 0846 Citalopram 40 MG DAILY 11/06 1000 AC 11/06 Hydrobromide PO 0847 Fluticasone 2 SPRAY DAILY 11/06 1000 AC 11/06 Propionate BENJAMIN 0848 Hydrochlorothiazide 25 MG DAILY 11/06 1000 CAN PO Ipratropium [place] 2.5 ML ONCE ONE 11/05 2044 DC 11/05 INH 11/05 Ipratropium [place] 2.5 ML ONCE ONE 11/05 2029 CAN INH 11/05 2030 Loratadine 10 MG DAILY 11/06 1000 AC 11/06 PO 0847 Lorazepam 0 Q1P PRN 11/06 0045 AC IV Lorazepam 1 MG .STK-MED ONE 11/06 0006 DC PO 11/06 0007 Lorazepam 1 MG BID 11/05 2309 AC 11/06 PO 0848 Montelukast Sodium 10 MG 2200 11/060 AC PO Morphine Sulfate 2 MG Q4P PRN 11/05 2115 AC IV Pantoprazole Sodium 40 MG DAILY 11/06 1000 AC 11/06 IV 0844 Pantoprazole Sodium 40 MG ONCE ONE 11/05 1830 DC 11/05 IV 11/05 1831 1903 Potassium Chloride 40 MEQ ONCE ONE 11/06 0045 DC 11/06 PO 11/06 0046 0051 Sodium Chloride 1,000 ML .Q10H 11/05 2100 AC 11/06 IV 0844 Sodium Chloride 1,000 ML BOLUS ONE 11/05 1715 DC 11/05 IV 11/05 1814 1720 Thiamine HCl 100 MG DAILY 11/06 1000 AC 11/06 PO 0847 Thiamine HCl 200 MG ONCE ONE 11/05 2359 DC 11/06 PO 11/06 0000 0047 Last 24 Hrs of Lab/Casey Results Last 24 Hrs of Labs/Mics: Laboratory Tests 11/06/16 0625: Anion Gap 7, Estimated GFR > 60, BUN/Creatinine Ratio 12.9, CBC w Diff NO MAN DIFF REQ, RBC 4.11 L, MCV 93.6, MCH 31.2 H, RDW 14.4, MPV 9.6, Gran % 61.9, Lymphocytes % 25.2, Monocytes % 9.4 H, Eosinophils % 2.6, Basophils % 0.9, Absolute Granulocytes 2.4, Absolute Lymphocytes 1.0 L, Absolute Monocytes 0.4, Absolute Eosinophils 0.1, Absolute Basophils 0, PUBS MCHC 33.3 11/06/16 0140: CBC w Diff NO MAN DIFF REQ, RBC 4.37 L, MCV 92.9, MCH 31.1 H, RDW 14.5, MPV 9.0, Gran % 59.4, Lymphocytes % 29.3, Monocytes % 8.5, Eosinophils % 2.2, Basophils % 0.6, Absolute Granulocytes 2.6, Absolute Lymphocytes 1.3, Absolute Monocytes 0.4, Absolute Eosinophils 0.1, Absolute Basophils 0, PUBS MCHC 33.5 11/05/16 1700: Anion Gap 10, Estimated GFR > 60, BUN/Creatinine Ratio 22.5, Glucose 98, Calcium 9.7, Magnesium 2.1, Iron 180, TIBC 272, Ferritin 95.0, Total Bilirubin 0.8, AST 67 H, ALT 46, Alkaline Phosphatase 115, Troponin I < 0.01, Total Protein 7.2, Albumin 4.3, Globulin 2.9, Albumin/Globulin Ratio 1.5, PT 10.2, INR 0.97, CBC w Diff NO MAN DIFF REQ, RBC 4.63 L, MCV 93.5, MCH 30.6, RDW 14.7 H, MPV 8.9, Gran % 67.9, Lymphocytes % 19.9 L, Monocytes % 9.9 H, Eosinophils % 1.5, Basophils % 0.8, Absolute Granulocytes 3.0, Absolute Lymphocytes 0.9 L, Absolute Monocytes 0.4, Absolute Eosinophils 0.1, Absolute Basophils 0, PUBS MCHC 32.8 L, Serum Alcohol < 10.0 Assessment/Plan Assessment: Pt is a 76 yo male with a pmh significant for HTN, hyperlipidemia, COPD, GERD, alcohol abuse, internal hemerrhoids presented to ED complaining of one episode of blood coated stool yesterday afternoon. no associated abdominal pain, but did strain more than usual during this bowel movement. #Bright Red Blood Per Rectum, possibly due to diverticulosis or internal hemorrhoids. GI has seen him and they will do a colonoscopy tomorrow. He'll get 2 Dulcolax after supper tonight, half a gallon of GoLYTELY, another half a gallon of GoLYTELY in the morning. Iron studies are normal. CT abdomen and pelvis negative. -Full liquids diet -Appreciate GI recommendations -CBC every 12 hours #alcohol abuse AST 67, ALT 46. Drinks 1-2 bottles of vodka daily, has been skipping meals.: CIWA 0 this morning,-24 hours is 2. - CIWA protocol - ativan 1 mg PO BID. Consider tapering this. - thaimine 100 mg daily #DVT Prophylaxis - ALPs #Code status - Full Code Problem List: 1. Rectal bleeding Pain Ratin Pain Location: no pain Pain Goal: Remain pain free Pain Plan: see a/p Tomorrow's Labs & Rationales: nuno obrien Consulting Request: Consulting Specialty: General Internal Medicine
--- NOTE | 2016-11-06 11:23 | Cons- Gastroenterology ---
General Information and HPI Consulting Request Date of Consult: 11/06/16 Requested By: LITZY COUGHLIN MD Reason for Consult: Rectal bleeding, weigth loss. Source of Information: patient, old records Exam Limitations: no limitations History of Present Illness: Mr. Champion is a 76 year old male with a PMH significant for HTN, hyperlipidemia , asthma and etoh abuse who presented to yesterday afternoon with reports of rectal bleeding and weight loss. He notes that after going to the bathroom the night before presentation to the ER had a bowel movement that was coated with blood which was something that he hasn't previously noticed. The bleeding was not associated with any abdominal pain. He also denies any abdominal pain with eating, heartburn, dysphagia or vomiting. He has had a poor appetite over the past few months and this has resulted in a 20 lb wt loss over that time period. He has not had any black tarry stool. He came to the ER yesterday afternoon and was found to have a hgb of 14 and to have some blood on rectal exam and he was admitted to the medical service for orthostatic hypotension that he had in the ER and improved with IVF. Since admission he has been hemodynamically stable. He has had a fall in his hgb to around 12 and he did have another bloody bowel movement last night which also had some blood in it, but he notes it wasn't as much as the night before. A ct scan done int the ER was unremarkable. Allergies/Medications Allergies: Coded Allergies: aspirin (Mild, GI UPSET 03/25/16) Home Med List: Albuterol Sulfate (Ventolin Hfa) 90 MCG HFA.AER.AD 1-2 PUF INH Q4H PRN ASTHMA (Reported) Amlodipine Besylate 5 MG TABLET 1 TAB PO DAILY HEART/BP (Reported) Budesonide/Formoterol Fumarate (Symbicort 160-4.5 Mcg Inhaler) 160 MCG-4.5 MCG/ ACTUATION HFA.AER.AD 2 PUF INH BID ASTHMA (Reported) Cetirizine HCl 10 MG TABLET 1 TAB PO DAILY ALLERGIES (Reported) Citalopram Hydrobromide (Citalopram HBr) 40 MG TABLET 1 TAB PO DAILY MENTAL HEALTH (Reported) Famotidine (Pepcid) 20 MG TABLET 1 TAB PO BID gastritis Fluticasone Propionate 50 MCG/ACTUATION SPRAY.SUSP 2 SPRAY [place] DAILY ALLERGIES (Reported) Hydrochlorothiazide 25 MG TABLET 1 TAB PO DAILY DIURETIC/BP (Reported) Montelukast Sodium 10 MG TABLET 1 TAB PO DAILY ALLERGIES/ASTHMA (Reported) Phenyleph/Mineral Oil/Petrolat (Preparation H Ointment) 0.25 %-14 %-74.9 % OINT.APPL 1 DANIEL TOP BID PRN Hemorrhoids . Current Medications: Current Medications Sig/Ana Start time Last Medication Dose Route Stop Time Status Admin Acetaminophen 650 MG Q6P PRN 11/05 2114 AC PO Acetaminophen 1,000 MG Q6 PRN 11/05 2114 AC IV Albuterol Sulfate 2 PUF Q4 11/05 2199 CAN INH Albuterol Sulfate 3 ML ONCE ONE 11/05 2044 DC 11/05 INH 11/05 Albuterol Sulfate 3 ML ONCE ONE 11/05 2029 CAN INH 11/05 2030 Amlodipine Besylate 5 MG DAILY 11/06 1000 CAN PO Budesonide/ 2 PUF BID 11/05 2199 AC 11/06 Formoterol Fumarate INH 0846 Citalopram 40 MG DAILY 11/06 1000 AC 11/06 Hydrobromide PO 0847 Fluticasone 2 SPRAY DAILY 11/06 1000 AC 11/06 Propionate BENJAMIN 0848 Hydrochlorothiazide 25 MG DAILY 11/06 1000 CAN PO Ipratropium [place] 2.5 ML ONCE ONE 11/05 2044 DC 11/05 INH 11/05 Ipratropium [place] 2.5 ML ONCE ONE 11/05 2030 CAN INH 11/05 2030 Loratadine 10 MG DAILY 11/06 1000 AC 11/06 PO 0847 Lorazepam 0 Q1P PRN 11/06 0045 AC IV Lorazepam 1 MG .STK-MED ONE 11/06 0006 DC PO 11/06 0007 Lorazepam 1 MG BID 11/05 2309 AC 11/06 PO 0848 Montelukast Sodium 10 MG 2200 11/06 2199 AC PO Morphine Sulfate 2 MG Q4P PRN 11/05 2114 AC IV Pantoprazole Sodium 40 MG DAILY 11/06 1000 AC 11/06 IV 0844 Pantoprazole Sodium 40 MG ONCE ONE 11/05 1830 DC 11/05 IV 11/05 183 1903 Potassium Chloride 40 MEQ ONCE ONE 11/06 0045 DC 11/06 PO 11/06 0046 0051 Sodium Chloride 1,000 ML .Q10H 11/05 2100 AC 11/06 IV 0844 Sodium Chloride 1,000 ML BOLUS ONE 11/05 1715 DC 11/05 IV 11/05 1814 1720 Thiamine HCl 100 MG DAILY 11/06 1000 AC 11/06 PO 0847 Thiamine HCl 200 MG ONCE ONE 11/05 2359 DC 11/06 PO 11/06 0000 0047 Past History Travel History Traveled to [place] past 21 day No Medical History Neurological: NONE EENT: allergies Cardiovascular: hypertension, hyperlipidemia Respiratory: asthma, bronchitis, COPD, pneumonia Gastrointestinal: GERD Hepatic: NONE Renal: NONE Musculoskeletal: NONE Psychiatric: NONE Endocrine: NONE Blood Disorders: NONE Cancer(s): NONE CERAMIC TILER/Reproductive: NONE Surgical History Surgical History: HAND SURGERY Family History Relations & Conditions If Any: MOTHER FH: hypertension BROTHER FH: throat cancer Psychosocial History Services at Home: None Smoking Status: Never Smoked ETOH Use: heavy use Illicit Drug Use: denies illicit drug use Review of Systems Review of Systems Constitutional: Reports: malaise, weakness, unexplained weight loss. Denies: diaphoresis, fever. EENTM: Denies: no symptoms. Cardiovascular: Denies: no symptoms. Respiratory: Denies: no symptoms. GI: Reports: see HPI. Genitourinary: Denies: no symptoms. Musculoskeletal: Denies: no symptoms. Skin: Denies: no symptoms. Neurological/Psychological: Denies: no symptoms. Hematologic/Endocrine: Reports: bleeding. Immunologic/Allergic: Denies: no symptoms. All Other Systems: Reviewed and Negative Exam & Diagnostic Data Vital Signs and I&O Vital Signs Date Time Temp Pulse Resp B/P B/P Pulse O2 O2 Flow FiO2 Mean Ox Delivery Rate 11/06 0940 Room Air Room Air 11/06 0400 97.9 79 20 128/70 11/06 0400 97.9 79 20 128/70 92 Room Air 11/06 0011 97.9 84 20 132/70 93 Room Air 11/06 0000 97.9 84 20 132/70 11/05 2318 98.5 90 20 140/70 20 11/05 2046 97.0 85 20 152/91 94 Room Air 11/05 1906 98.1 88 20 126/86 100 Room Air 11/05 1736 98.8 86 18 112/79 96 Room Air 11/05 1557 97.2 102 20 132/84 97 Room Air Intake & Output 11/06 0400 11/05 0400 11/04 0400 Intake Total 1160 100 Output Total Balance 1160 100 Intake, IV 800 100 Intake, Oral 360 0 Number 1 Bowel Movements Patient 152 lb 152 lb Weight Weight Reported by Patient Estimated Measurement Method Physical Exam General Appearance: well developed/nourished, no apparent distress, alert, comfortable Head: atraumatic, normal appearance Eyes: Bilateral: normal appearance. Ears, Nose, Throat: normal pharynx, normal ENT inspection, hearing grossly normal Neck: normal inspection, supple, full range of motion Respiratory: normal breath sounds, chest non-tender, no respiratory distress Cardiovascular: regular rate/rhythm Rectal: deferred, red blood in vault without masses or external hemorrhoids per ED Back: normal inspection, normal range of motion Extremities: normal inspection, normal capillary refill, normal range of motion, no edema Neurologic/Psych: no motor/sensory deficits, awake, alert, oriented x 3 Results Pertinent Lab Results: Laboratory Tests 11/06 11/06 0625 0140 Chemistry Sodium (137 - 145 mmol/L) 133 L Potassium (3.5 - 5.1 mmol/L) 3.4 L Chloride (98 - 107 mmol/L) 101 Carbon Dioxide (22 - 30 mmol/L) 25 Anion Gap (5 - 16) 7 BUN (9 - 20 mg/dL) 9 Creatinine (0.7 - 1.2 mg/dL) 0.7 Estimated GFR (>60 ml/min) > 60 BUN/Creatinine Ratio (7 - 25 %) 12.9 Hematology CBC w Diff NO MAN DIFF REQ NO MAN DIFF REQ WBC (4.8 - 10.8 /CUMM) 3.9 L 4.3 L RBC (4.70 - 6.10 /CUMM) 4.11 L 4.37 L Hgb (14.0 - 18.0 G/DL) 12.8 L 13.6 L Hct (42 - 52 %) 38.5 L 40.6 L MCV (80.0 - 94.0 FL) 93.6 92.9 MCH (27.0 - 31.0 PG) 31.2 H 31.1 H RDW (11.5 - 14.5 %) 14.4 14.5 Plt Count (130 - 400 /CUMM) 150 172 MPV (7.4 - 10.4 FL) 9.6 9.0 Gran % (42.2 - 75.2 %) 61.9 59.4 Lymphocytes % (20.5 - 51.1 %) 25.2 29.3 Monocytes % (1.7 - 9.3 %) 9.4 H 8.5 Eosinophils % (0 - 5 %) 2.6 2.2 Basophils % (0.0 - 2.0 %) 0.9 0.6 Absolute Granulocytes (1.4 - 6.5 /CUMM) 2.4 2.6 Absolute Lymphocytes (1.2 - 3.4 /CUMM) 1.0 L 1.3 Absolute Monocytes (0.10 - 0.60 /CUMM) 0.4 0.4 Absolute Eosinophils (0.0 - 0.7 /CUMM) 0.1 0.1 Absolute Basophils (0.0 - 0.2 /CUMM) 0 0 PUBS MCHC (33.0 - 37.0 G/DL) 33.3 33.5 11/05 1700 Chemistry Sodium (137 - 145 mmol/L) 137 Potassium (3.5 - 5.1 mmol/L) 3.4 L Chloride (98 - 107 mmol/L) 96 L Carbon Dioxide (22 - 30 mmol/L) 30 Anion Gap (5 - 16) 10 BUN (9 - 20 mg/dL) 18 Creatinine (0.7 - 1.2 mg/dL) 0.8 Estimated GFR (>60 ml/min) > 60 BUN/Creatinine Ratio (7 - 25 %) 22.5 Glucose (65 - 99 mg/dL) 98 Calcium (8.4 - 10.2 mg/dL) 9.7 Magnesium (1.6 - 2.3 mg/dL) 2.1 Iron (49 - 181 ug/dL) 180 TIBC (261 - 462 ug/dL) 272 Ferritin (17.9 - 464 ng/mL) 95.0 Total Bilirubin (0.2 - 1.3 mg/dL) 0.8 AST (17 - 59 U/L) 67 H ALT (21 - 72 U/L) 46 Alkaline Phosphatase (< 127 U/L) 115 Troponin I (<0.11 ng/ml) < 0.01 Total Protein (6.3 - 8.2 g/dL) 7.2 Albumin (3.5 - 5.0 g/dL) 4.3 Globulin (1.9 - 4.2 gm/dL) 2.9 Albumin/Globulin Ratio (1.1 - 2.2 %) 1.5 Coagulation PT (9.4 - 12.5 SEC) 10.2 INR (0.90 - 1.17) 0.97 Hematology CBC w Diff NO MAN DIFF REQ WBC (4.8 - 10.8 /CUMM) 4.5 L RBC (4.70 - 6.10 /CUMM) 4.63 L Hgb (14.0 - 18.0 G/DL) 14.2 Hct (42 - 52 %) 43.3 MCV (80.0 - 94.0 FL) 93.5 MCH (27.0 - 31.0 PG) 30.6 RDW (11.5 - 14.5 %) 14.7 H Plt Count (130 - 400 /CUMM) 168 MPV (7.4 - 10.4 FL) 8.9 Gran % (42.2 - 75.2 %) 67.9 Lymphocytes % (20.5 - 51.1 %) 19.9 L Monocytes % (1.7 - 9.3 %) 9.9 H Eosinophils % (0 - 5 %) 1.5 Basophils % (0.0 - 2.0 %) 0.8 Absolute Granulocytes (1.4 - 6.5 /CUMM) 3.0 Absolute Lymphocytes (1.2 - 3.4 /CUMM) 0.9 L Absolute Monocytes (0.10 - 0.60 /CUMM) 0.4 Absolute Eosinophils (0.0 - 0.7 /CUMM) 0.1 Absolute Basophils (0.0 - 0.2 /CUMM) 0 PUBS MCHC (33.0 - 37.0 G/DL) 32.8 L Toxicology Serum Alcohol (<10 MG/DL) < 10.0 Imaging/Other Studies: SERVICE DATE: 11/05/16 EXAM TYPE: CAT - CT ABD & PELVIS W IV CONTRAST EXAMINATION: CT ABDOMEN AND PELVIS with CONTRAST CLINICAL INFORMATION: Hematochezia.] Orthostasis. Weight loss. Colon cancer. Diverticulitis. COMPARISON: CT pelvis 09/26/2015 TECHNIQUE: Helical CT scan of abdomen and pelvis. IV contrast: 95 mL Optiray 320 Oral contrast: None Reconstruction: Coronal and sagittal reformatted images performed at CT scanner by the technologist. FINDINGS: LUNG BASES: The visualized lung bases are unremarkable. LIVER, GALLBLADDER, AND BILIARY TREE: 2 cm hepatic cyst central right lobe of liver. No suspicious liver lesion. The gallbladder is unremarkable with no evidence of radiopaque gallstones, gallbladder wall thickening, or obvious pericholecystic inflammatory changes. PANCREAS: No acute change of the pancreas. No mass. No pancreatic duct dilatation. SPLEEN: Spleen normal in size and contour. No focal lesion. ADRENAL GLANDS: Adrenal glands are normal in size. No focal mass. KIDNEYS AND URETERS: 2.7 cm renal cyst midpole right kidney. No renal or ureteral calculus. No hydronephrosis. BLADDER: Unremarkable. GASTROINTESTINAL TRACT: The small and large bowel are unremarkable. No diverticula of the colon. The appendix is unremarkable. MESENTERY: No focal inflammation. No free fluid. No free air. ABDOMINAL WALL: Surgical mass right inguinal region. No recurrent hernia. LYMPH NODES: Normal. VASCULAR: Aorta is tortuous with calcification of wall. No aneurysm. PELVIC VISCERA: Prostate measures 5.2 cm transverse. OSSEOUS STRUCTURES: Unremarkable. IMPRESSION: No acute abnormality CT scan abdomen pelvis. Assessment/Plan Assessment/Recommendations: Assessment: Mr. Champion is a 76 year old male who presents with painless rectal bleeding which I suspect is likely secondary to hemorrhoids. He did have diverticulosis on his last colonoscopy in 2010 so a diverticular bleed is also possible considering the bleeding is painless, but he is not currentlly behaving as a diverticular bleed. Other potential etiologies of the rectal bleeding could be bleeding from an AVM (although this is usually occult), bleeding from a dieulafoys lesion or from an occult malignancy or large polyp, but if the later was the case I would of expected his ct scan to show some bowel wall abnormality and in reviewing his prior colonoscopy biopsies he doesn't appear to have had any adenomatous polyps in the past. Bleeding from colitis, ischemic, inflammatory or infectious is also unlikely without any pain or any bowel wall inflammation on ct scan and an upper transit upper GI bleed is unlikely as he is too stable for this. While he should have a repeat colonoscopy to further evaluate the bleeding this isn't urgent and can safely be pursued in the morning or possibly even as an outpatient. He also should have an EGD to further evaluate his weight loss, but this also can likely be pursued as an outpatient. As he is likely going to be admitted for at least another day I will tentaively plan to pursue the endoscopic work up tomorrow. Recommendations: 1. Full liquid diet with nothing red for now. 2. After a liquid supper would administer 2 dulcolax tablets followed by a 1/2 gallon of colyte tonight and anther 1/2 gallon of colyte early tomorrow morning (around 5-6am) and would then keep NPO after midnignt in anticipation of a diagnostic/therapeutic colonscopy to be done tomorrow 3. Maintain 2 large bore IVs at all times 4. Follow CBC q12hrs and transfuse as needed to keep hgb > 8 5. Notify GI for signs of hemodynamically significant GI bleeding and if this occurs will transfer the pt to the ICU and expedite the endoscopic work up 6. D/C IV protonix 7. Monitor for signs of etoh withdrawal and treat with benzodiazepenes as needed. I will continue to follow this patient and make further recommendations based on his clinical course and the results of his endoscopic work up that is tentatively scheduled for tomorrow. Problem List: 1. Rectal bleeding 2. Lower GI bleed 3. Alcoholic gastritis Consult Acknowledgment - Thank you for your consult request.
[2016-11-06 14:47] VITALS: BP 125/90
[2016-11-06 18:58] LABS: ABSOLUTE BASOPHIL COUNT 0 /CUMM (0.0-0.2); ABSOLUTE EOSINOPHIL COUNT 0.1 /CUMM (0.0-0.7); ABSOLUTE GRANULOCYTE CT 3.2 /CUMM (1.4-6.5); ABSOLUTE MONOCYTE COUNT 0.4 /CUMM (0.10-0.60); BASOPHIL % 0.5 % (0.0-2.0); EOSINOPHIL % 2.9 % (0-5); GRANULOCYTE % 66.8 % (42.2-75.2); MEAN CORPUSCULAR HGB 30.8 PG (27.0-31.0); MEAN CORPUSCULAR HGB CONC 32.8 G/DL (33.0-37.0); MEAN CORPUSCULAR VOLUME 93.8 FL (80.0-94.0); MEAN PLATELET VOLUME 9.6 FL (7.4-10.4); PLATELET COUNT 156 /CUMM (130-400); RBC DISTRIBUTION WIDTH 14.6 % (11.5-14.5); RED BLOOD CELL CT 4.05 /CUMM (4.70-6.10); WHITE BLOOD CELL COUNT 4.9 /CUMM (4.8-10.8)
[2016-11-06 21:36] VITALS: BP 130/70
[2016-11-07 06:02] VITALS: BP 128/72
--- NOTE | 2016-11-07 07:19 | PN- Housestaff ---
See Addendum Subjective Follow-up For: Lower GI bleed, EtOH Subjective: No overnight events. He is prepping for colonoscopy and having significant diarrhea as expected. He is also complaining of congestion related to his allergies, asking for nasal spray. Otherwise, no complaints. Review of Systems Constitutional: Reports: no symptoms. EENTM: Reports: see HPI. Cardiovascular: Reports: no symptoms. Respiratory: Reports: no symptoms. Gastrointestinal: Reports: see HPI. Genitourinary: Reports: no symptoms. Musculoskeletal: Reports: no symptoms. Skin: Reports: no symptoms. Neurological/Psychological: Reports: no symptoms. Hematologic/Endocrine: Reports: no symptoms. Immunologic/Allergic: Reports: no symptoms. Objective Last 24 Hrs of Vital Signs/I&O Vital Signs Date Time Temp Pulse Resp B/P B/P Pulse O2 O2 Flow FiO2 Mean Ox Delivery Rate 11/07 0602 98.4 79 20 128/72 91 Room Air 11/06 2136 98.9 85 20 130/70 93 Room Air 11/06 1447 98.8 88 20 125/90 98 11/06 0940 Room Air Room Air Intake & Output 11/07 0800 11/07 0000 11/06 1600 Intake Total 2400 400 Output Total 501 Balance 2400 -101 Intake, IV 400 400 Intake, Oral 2000 Output, Stool 1 Output, Urine 500 Physical Exam General Appearance: Alert, Oriented X3, Cooperative, No Acute Distress Cardiovascular: Regular Rate, Normal S1, Normal S2 Lungs: Clear to Auscultation Abdomen: Normal Bowel Sounds, Soft, No Tenderness Extremities: No Edema Current Medications: Current Medications Sig/Ana Start time Last Medication Dose Route Stop Time Status Admin Acetaminophen 650 MG Q6P PRN 11/05 2114 AC PO Acetaminophen 1,000 MG Q6 PRN 11/05 2114 AC IV Bisacodyl 10 MG ONE TIME ONE 11/06 2100 DC 11/06 PO 11/06 2101 2207 Budesonide/ 2 PUF BID 11/05 2199 AC 11/06 Formoterol Fumarate INH 2209 Citalopram 40 MG DAILY 11/06 1000 AC 11/06 Hydrobromide PO 0847 Fluticasone 2 SPRAY DAILY 11/06 1000 AC 11/06 Propionate BENJAMIN 0848 Loratadine 10 MG DAILY 11/06 1000 AC 11/06 PO 0847 Lorazepam 0 Q1P PRN 11/06 0045 AC IV Lorazepam 1 MG BID 11/05 2308 AC 11/06 PO 2208 Montelukast Sodium 10 MG 2200 11/06 2199 AC 11/06 PO 2208 Morphine Sulfate 2 MG Q4P PRN 11/05 2114 IV Pantoprazole Sodium 40 MG DAILY 11/06 1000 DC 11/06 IV 0844 Polyethylene Glycol 0.5 GAL ONCE ONE 11/07 0600 DC 11/07 PO 11/07 0601 0557 Polyethylene Glycol 0.5 GAL ONCE ONE 11/06 2100 DC 11/06 PO 11/06 2101 211 Potassium Chloride 40 MEQ ONCE ONE 11/06 1445 DC 11/06 PO 11/06 1446 1555 Sodium Chloride 1,000 ML .Q10H 11/05 2100 AC 11/07 IV 0006 Thiamine HCl 100 MG DAILY 11/06 1000 AC 11/06 PO 0847 Last 24 Hrs of Lab/Casey Results Last 24 Hrs of Labs/Mics: Laboratory Tests 11/06/161758: CBC w Diff NO MAN DIFF REQ, RBC 4.05 L, MCV 93.8, MCH 30.8, RDW 14.6 H, MPV 9.6, Gran % 66.8, Lymphocytes % 20.9, Monocytes % 8.9, Eosinophils % 2.9, Basophils % 0.5, Absolute Granulocytes 3.2, Absolute Lymphocytes 1.0 L, Absolute Monocytes 0.4, Absolute Eosinophils 0.1, Absolute Basophils 0, PUBS MCHC 32.8 L Assessment/Plan Assessment: Pt is a 76 yo male with a pmh significant for HTN, hyperlipidemia, COPD, GERD, alcohol abuse, internal hemerrhoids presented to ED complaining of one episode of blood coated stool yesterday afternoon. no associated abdominal pain, but did strain more than usual during this bowel movement. #Bright Red Blood Per Rectum, possibly due to diverticulosis or internal hemorrhoids. GI has seen him and they will do a colonoscopy today. -MP until colonoscopy, appreciate GI recommendations for postprocedure care -Daily CBC #alcohol abuse AST 67, ALT 46. Drinks 1-2 bottles of vodka daily, has been skipping meals.: CIWA 0 this morning,-24 hours is 2. - CIWA protocol - ativan 1 mg PO BID. Consider tapering this. - thaimine 100 mg daily #DVT Prophylaxis - ALPs #Code status - Full Code Problem List: 1. Lower GI bleed Pain Ratin Pain Location: no pain Pain Goal: Remain pain free Pain Plan: see a/p Tomorrow's Labs & Rationales: nuno obrien Consulting Request: Consulting Specialty: General Internal Medicine
[2016-11-07 10:56] LABS: ABSOLUTE BASOPHIL COUNT 0 /CUMM (0.0-0.2); ABSOLUTE EOSINOPHIL COUNT 0.1 /CUMM (0.0-0.7); ABSOLUTE GRANULOCYTE CT 2.6 /CUMM (1.4-6.5); ABSOLUTE MONOCYTE COUNT 0.3 /CUMM (0.10-0.60); BASOPHIL % 0.8 % (0.0-2.0); EOSINOPHIL % 3.5 % (0-5); GRANULOCYTE % 63.1 % (42.2-75.2); HEMATOCRIT 37.9 % (42-52); MEAN CORPUSCULAR HGB 30.9 PG (27.0-31.0); MEAN CORPUSCULAR HGB CONC 32.9 G/DL (33.0-37.0); MEAN PLATELET VOLUME 9.5 FL (7.4-10.4); PLATELET COUNT 156 /CUMM (130-400); RBC DISTRIBUTION WIDTH 14.6 % (11.5-14.5); RED BLOOD CELL CT 4.03 /CUMM (4.70-6.10); WHITE BLOOD CELL COUNT 4.1 /CUMM (4.8-10.8)
--- NOTE | 2016-11-07 13:29 | Proc Note Endoscopy ---
Endoscopy Procedure Medical History: unchanged (see [facility] consult 11/07/16) Mental Status: alert/oriented Heart/Lung Eval Prior to Sedation: within normal limits Candidate for Sedation? Yes Procedure Date: 11/07/16 Procedure Type: EGD w/biopsy Seed Laboratory Assistant: James Chau MD ASA Classification: III Indications: Wt loss. Instrument: diagnostic gastroscope Meds Received: MAC Patient's Tolerance: good Complications: none Extent Reached: second part of duodenum Procedure: After getting written informed consent the patient was placed in the left lateral decubitus position with pulse oximetry, cardiac monitoring, and supplemental oxygen given. A bite block was inserted and IV sedation was given until the desired effect was achieved. A high definition upper Olympus endoscope was then inserted into the mouth and advanced to the second portion of the duodenum with little difficulty. Retroflexed views and photodocumentation was obtained. Findings: Esophagus: The esophageal mucosa was grossly normal appearance and there was a normal-appearing Z line at 40 cm from the incisors. There were no esophageal strictures, ulcers, masses, varices, or long tongues of salmon-colored mucosa appreciated. Stomach: The gastric mucosa was atrophic in appearance and diffusely mildly erythematous, but there were no ulcers, erosions, or masses appreciated. Distention and peristalsis of the stomach appeared normal. Retroflexed views revealed a small hiatal hernia. Random biopsies were obtained from the antrum with cold biopsy forceps and were sent to pathology for further evaluation. Duodenum: The duodenal bulb, sweep, and folds were grossly normal in appearance. Impression: 1. Atrophic gastritis status post antral biopsies. 2. Small hiatal hernia. Recommendations: 1. He should use H2 RA's or [id number] PPIs as needed for dyspeptic symptoms or heartburn. 2. He should follow an antireflux regimen. 3. He should follow up the pathology results me as an outpatient. 4. He should avoid or minimize use of NSAIDs. CC: BENJAMIN GLOVER,ZACH
--- NOTE | 2016-11-07 13:53 | Proc Note Colonoscopy ---
Colonoscopy Procedure Medical History: unchanged (see [facility] consult 11/07/16) Mental Status: alert/oriented Heart/Lung Eval Prior to Sedation: within normal limits Candidate for Sedation? Yes Date of Last Colonoscopy: 2010 Procedure Date: 11/07/16 Procedure Type: colonoscopy Bone Drier Operator: James Chau MD ASA Classification: III Indications: Rectal bleeding. Instrument (Colonoscope): single channel Meds Received: MAC Patient's Tolerance: good Complications: none Extent Reached: cecum Prep: good Procedure: After getting written informed consent the patient was placed in the left lateral decubitus position with pulse oximetry, cardiac monitoring, and supplemental oxygen was given. IV sedation was given until the desired effect was achieved. A rectal exam was performed which was normal. A high definition variable stiffness Olympus colonoscope was then inserted into the anus and advanced to the cecum with little difficulty. Retroflexed views were obtained in both the right colon and rectum and photodocumentation was obtained. Close inspection of the colonic mucosa was performed on insertion and withdrawal of the colonoscope with a withdrawal time that was adequate in length to closely inspect all folds and zhang of the colon. Findings: The visualized colonic mucosa including views of the rectum, sigmoid, descending , transverse, ascending colon and cecum were grossly unremarkable. There were no polyps, masses, ulcers, significant erythematous changes, or diverticula appreciated. Retroflexed views in the rectum revealed prominent, inflamed internal hemorrhoids. Retroflexed views in the right colon did not reveal any polyps. In spite of multiple attempts the terminal ileum was not intubated. There was bile appreciated throughout to the cecum and there was no blood seen anywhere in the colon. Impression: 1. Grossly normal colonoscopy without evidence of active bleeding. 2. Prominent, inflamed internal hemorrhoids. Recommendations: 1. He should be advanced a high-fiber diet as tolerated. 2. If there are no other active issues consideration given to discharge the patient home later today or in the a.m. 3. He should administer local/topical care for hemorrhoidal bleeding as needed. 4. As he did not have any adenomatous polyps on this exam is currently 76 years of age would not recommend any further routine colonoscopies. CC: BENJAMIN GLOVER,ZACH
--- NOTE | 2016-11-07 14:33 | Discharge Summary ---
Visit Information Visit Dates Admission Date: 11/05/16 Discharge Date: 11/08/16 Hospital Course Course Attending Physician: JONNY GUERRERO MD Primary Care Physician: ZACH ALEXANDER MD Consulting Request: Consulting Specialty: General Internal Medicine Hospital Course: Mr. Champion is a 76 yo male with a pmh significant for HTN, hyperlipidemia, COPD , GERD, alcohol abuse, internal hemerrhoids presented to ED complaining of one episode of blood coated stool. On presentation, vital signs were T 97.2, HR 102, RR 20, blood pressure 132/84, satting 97% on room air. Laboratories were significant for white blood cell count 4.5, 9.9% monocytes, potassium 3.4, chloride 96, AST 67, ALT 46. CT imaging showed no acute abnormality. He was admitted to general medicine treated for the following problems: 1. Bright red blood per rectum 2. Atrophic gastritis status post antral biopsies 3. Alcohol abuse #Bright Red Blood Per Rectum: This was likely due to internal hemorrhoids. He did receive a colonoscopy and endoscopy that showed no evidence of active bleeding and prominent inflamed internal hemorrhoids. There was also atrophic gastritis. Antral biopsies were taken. He should follow up with GI in 1 week for pathology results. The colonoscopy also showed a small hiatal hernia which he can follow-up with his PCP for. He should be on a high-fiber diet, use a H2 huang or PPI as needed for reflux, and avoid NSAIDs going forward. #alcohol abuse: Slight transaminitis on presentation with history of drinking 1- 2 bottles of vodka daily and skipping meals. He was placed on CIWA protocol on standing Ativan. He was also given thiamine supplements. His Ativan was tapered. He did not have high scores on the CIWA protocol. He should consider abstaining from alcohol in the future and eating more. Allergies: Coded Allergies: aspirin (Mild, GI UPSET 03/25/16) Significant Procedures: Colonoscopy: Impression: 1. Grossly normal colonoscopy without evidence of active bleeding. 2. Prominent, inflamed internal hemorrhoids. Recommendations: 1. He should be advanced a high-fiber diet as tolerated. 2. If there are no other active issues consideration given to discharge the patient home later today or in the a.m. 3. He should administer local/topical care for hemorrhoidal bleeding as needed. 4. As he did not have any adenomatous polyps on this exam is currently 76 years of age would not recommend any further routine colonoscopies. Endoscopy: Impression: 1. Atrophic gastritis status post antral biopsies. 2. Small hiatal hernia. Recommendations: 1. He should use H2 RA's or obxv-fke-[id number] PPIs as needed for dyspeptic symptoms or heartburn. 2. He should follow an antireflux regimen. 3. He should follow up the pathology results me as an outpatient. 4. He should avoid or minimize use of NSAIDs. Disposition Summary Disposition Principal Diagnosis: Internal hemorrhoids Additional Diagnosis: Atrophic gastritis, small hiatal hernia, alcohol abuse Discharge Disposition: home health services Discharge Instructions General Discharge Information Code Status: Full Code Patient's Diet: High-fiber diet Patient's Activity: As tolerated Follow-Up Instructions/Appts: Please follow up with GI in 1 week. Please follow up with your PCP in 1 week. Please take all medications as directed. Please avoid NSAIDs goign forward. Medications at Discharge Discharge Medications: Continue taking these medications: Citalopram Hydrobromide (Citalopram HBr) 40 MG TABLET 1 Tablet ORAL DAILY Qty = 90 Comments: Last Taken: 11/08/16 Time: 0800 AM Hydrochlorothiazide (Hydrochlorothiazide) 25 MG TABLET 1 Tablet ORAL DAILY Qty = 90 Comments: NOT GIVEN IN HOSPITAL Famotidine (Pepcid) 20 MG TABLET 1 Tablet ORAL TWICE DAILY Qty = 60 Comments: Last Taken: 11/08/16 Time: 1100 AM Fluticasone Propionate (Fluticasone Propionate) 50 MCG/ACTUATION SPRAY.SUSP 2 [place] Both sides of nose DAILY Qty = 16 Comments: Last Taken: 11/08/16 Time: 0800 AM Albuterol Sulfate (Ventolin Hfa) 90 MCG HFA.AER.AD 1-2 Puff Inhale through mouth Q4H as needed for ASTHMA Qty = 18 Comments: NOT GIVEN IN HOSPITAL Budesonide/Formoterol Fumarate (Symbicort 160-4.5 Mcg Inhaler) 160 MCG-4.5 MCG/ ACTUATION HFA.AER.AD 2 Puff Inhale through mouth TWICE DAILY Qty = 10 Comments: Last Taken: 11/08/16 Time: 0800 AM Amlodipine Besylate (Amlodipine Besylate) 5 MG TABLET 1 Tablet ORAL DAILY Qty = 90 Comments: NOT GIVEN IN HOSPITAL Montelukast Sodium (Montelukast Sodium) 10 MG TABLET 1 Tablet ORAL DAILY Qty = 90 Comments: Last Taken: 11/07/16 Time: 2100 PM Cetirizine HCl (Cetirizine HCl) 10 MG TABLET 1 Tablet ORAL DAILY Qty = 90 Comments: NOT GIVEN IN HOSPITAL Start taking the following new medications: Phenyleph/Mineral Oil/Petrolat (Preparation H Ointment) 0.25 %-14 %-74.9 % OINT.APPL 1 Application On the skin TWICE DAILY as needed for Hemorrhoids Qty = 1 No Refills Instructions: . Comments: NOT GIVEN IN HOSPITAL Copies To: BENJAMIN GLOVER,ZACH; CLAIRE GLOVER,ARNEL Attending MD Review Statement Documenting Attending: CESAR GLOVER,JONNY Davies Other Findings: please see my separate attending note for more details.
--- NOTE | 2016-11-07 15:00 | Patient Discharge Instructions ---
Discharge Instructions General Discharge Information You were seen/treated for: Internal hemorrhoids Atrophic gastritis You had these procedures: Endoscopy and Colonoscopy Watch for these problems: Recurrence of bloody stool, fevers, chills, dizziness, generalized weakness Special Instructions: Please follow-up with your digital commentator Dr. Chau within 2 weeks for pathology results. Please take all medications as directed. Please avoid/minimize the use of NSAIDs. Please continue with high-fiber diet. Please abstain from alcohol. Diet Continue normal diet: Yes Recommended Diet: high-fiber Activity Full Activity/No Limits: Yes Acute Coronary Syndrome Inclusion Criteria At DC or during hospital stay patient has or had the following: ACS DIAGNOSIS No Discharge Core Measures Meds if any: Prescribed or Continued at Discharge Meds if any: NOT Prescribed or Continued at Discharge Congestive Heart Failure Inclusion Criteria At DC or during hospital stay patient has or had the following: CHF DIAGNOSIS No Discharge Core Measures Meds if any: Prescribed or Continued at Discharge Meds if any: NOT Prescribed or Continued at Discharge Cerebrovascular accident Inclusion Criteria At DC or during hospital stay patient has or had the following: CVA/TIA Diagnosis No Discharge Core Measures Meds if any: Prescribed or Continued at Discharge Meds if any: NOT Prescribed or Continued at Discharge Venous thromboembolism Inclusion Criteria VTE Diagnosis No VTE Type NONE VTE Confirmed by (Test) NONE Discharge Core Measures - Per Current guidelines, there needs to be overlap - treatment for the first 5 days of Warfarin therapy. - If discharged on Warfarin prior to 5 days of - overlap therapy, the patient will need to be - assessed for post discharge needs including - *Post discharge parental anticoagulation - *Warfarin and/or parental anticoagulation education - *Follow up date to check INR post discharge At least 5 days overlap therapy as Inpatient No Meds if any: Prescribed or Continued at Discharge Note: Overlap Therapy is Warfarin and Anticoagulant Meds if any: NOT Prescribed or Continued at Discharge
[2016-11-07 15:19] VITALS: BP 140/80
[2016-11-07 21:57] VITALS: BP 120/74
[2016-11-07 22:00] VITALS: BP 120/74
[2016-11-08 02:00] VITALS: BP 130/70
[2016-11-08 06:00] VITALS: BP 138/70
[2016-11-08] MEDS ORDERED: PREPARATION H O28 GM TOP ×2 (06:44→06:45)
--- NOTE | 2016-11-08 07:30 | PN- Housestaff ---
See Addendum Subjective Follow-up For: Internal hemorrhoids Subjective: No overnight events. He tolerated dinner well. Just complaining of a mild headache, asking for tylenol. One BM yesterday, no blood. He feels well, ready to home. Review of Systems Constitutional: Reports: no symptoms. EENTM: Reports: see HPI. Cardiovascular: Reports: no symptoms. Respiratory: Reports: no symptoms. Gastrointestinal: Reports: no symptoms. Genitourinary: Reports: no symptoms. Musculoskeletal: Reports: no symptoms. Skin: Reports: no symptoms. Neurological/Psychological: Reports: no symptoms. Hematologic/Endocrine: Reports: no symptoms. Immunologic/Allergic: Reports: no symptoms. Objective Last 24 Hrs of Vital Signs/I&O Vital Signs Date Time Temp Pulse Resp B/P B/P Pulse O2 O2 Flow FiO2 Mean Ox Delivery Rate 11/08 0600 99.0 83 20 138/70 93 Room Air 11/07 2200 97.4 95 20 120/74 11/07 2157 97.4 95 20 120/74 92 11/07 1519 97.4 75 20 140/80 93 Intake & Output 11/08 0800 11/08 0000 11/07 1600 Intake Total 260 500 Output Total Balance 260 500 Intake, IV 20 20 Intake, Oral 240 480 Physical Exam General Appearance: Alert, Oriented X3, Cooperative, No Acute Distress Cardiovascular: Regular Rate, Normal S1, Normal S2 Lungs: Clear to Auscultation Abdomen: Normal Bowel Sounds, Soft, No Tenderness Extremities: No Edema Assessment/Plan Assessment: Pt is a 76 yo male with a pmh significant for HTN, hyperlipidemia, COPD, GERD, alcohol abuse, internal hemerrhoids here with hemorrhoid bleeding. #Bright Red Blood Per Rectum, possibly due to diverticulosis or internal hemorrhoids. Colonoscopy showed no evidence of active bleeding with prominent inflamed internal hemorrhoids. No further screening colonoscopies needed given his age. He also had an endoscopy that showed atrophic gastritis and a small hiatal hernia. Biopsies were obtained. He should follow-up with GI in 1 week for the pathology report -High-fiber diet -Topical care for hemorrhoids as needed -Daily CBC -H2-huang or quli-wml-wpwyvef PPI as needed for heartburn -Avoid NSAIDs #alcohol abuse AST 67, ALT 46. Drinks 1-2 bottles of vodka daily, has been skipping meals.: CIWA 0 this morning,-24 hours is 1. - CIWA protocol, consider discontinuing this - Stop Ativan 1 mg PO BID. - thaimine 100 mg daily #DVT Prophylaxis - ALPs #Code status - Full Code Problem List: 1. Internal hemorrhoid 2. Alcohol abuse Pain Ratin Pain Location: no pain Pain Goal: Remain pain free Pain Plan: see a/p Tomorrow's Labs & Rationales: none. Consulting Request: Consulting Specialty: General Internal Medicine Discharge Plan Anticipated Discharge (Day): today
[2016-11-08 09:13] LABS: ABSOLUTE BASOPHIL COUNT 0 /CUMM (0.0-0.2); ABSOLUTE EOSINOPHIL COUNT 0.2 /CUMM (0.0-0.7); ABSOLUTE GRANULOCYTE CT 2.7 /CUMM (1.4-6.5); ABSOLUTE MONOCYTE COUNT 0.3 /CUMM (0.10-0.60); BASOPHIL % 0.6 % (0.0-2.0); EOSINOPHIL % 3.9 % (0-5); GRANULOCYTE % 64.7 % (42.2-75.2); HEMATOCRIT 38.4 % (42-52); MEAN CORPUSCULAR HGB 31.1 PG (27.0-31.0); MEAN CORPUSCULAR HGB CONC 32.9 G/DL (33.0-37.0); MEAN CORPUSCULAR VOLUME 94.5 FL (80.0-94.0); MEAN PLATELET VOLUME 9.7 FL (7.4-10.4); PLATELET COUNT 157 /CUMM (130-400); RBC DISTRIBUTION WIDTH 14.7 % (11.5-14.5); RED BLOOD CELL CT 4.07 /CUMM (4.70-6.10); WHITE BLOOD CELL COUNT 4.2 /CUMM (4.8-10.8)
== END 2016-11-08 12:45 | disposition home health service (06) | DRG 395 ==
LOC: ERH 15:53 → ERHI 18:22 → 2NA 18:22 → ENRESERV 20:59 → ENTRNSPT 21:43 → EDTRNSPTSTS 21:56 → CMPTRNSPT 22:12 → 2NA 22:16 → ENPENDDIS 11-08 10:29 → 2NA 11-08 12:45
PROVIDERS: Internal Medicine; Physician Assistant Medical; Student in an Organized Health Care Education/Training Program; ADMIT Internal Medicine
PROC: 0DB68ZX Excision of Stomach, Via Natural or Artificial Opening Endoscopic, Diagnostic (ICD-10-PCS; principal; 2016-11-07)
PROC: 0DJD8ZZ Inspection of Lower Intestinal Tract, Via Natural or Artificial Opening Endoscopic (ICD-10-PCS; 2016-11-07)
DX: K64.8 Other hemorrhoids (principal); J44.9 Chronic obstructive pulmonary disease, unspecified; K29.40 Chronic atrophic gastritis without bleeding; I10 Essential (primary) hypertension; E78.5 Hyperlipidemia, unspecified; K21.9 Gastro-esophageal reflux disease without esophagitis; I95.1 Orthostatic hypotension; F10.20 Alcohol dependence, uncomplicated; R63.4 Abnormal weight loss; Z68.24 Body mass index [BMI] 24.0-24.9, adult; K44.9 Diaphragmatic hernia without obstruction or gangrene; F17.200 Nicotine dependence, unspecified, uncomplicated
CPT/HCPCS: 2NASP; 36415; 74177; 82436; 88305; 88312; 93005; 93010; 96360; G0480; J3490

== ENCOUNTER 2017-07-08 20:39 | Emergency (ER) | payer OTHER ==
[~2017-07-08] VITALS: Ht 167.6 cm; Wt 72.6 kg
[~2017-07-08 20:39] MED LIST changes: +AMLODIPINE BESYL5 M1 PO; +FLUTICASONE PRO16 GM NASB; +MEDROL4 M2 PO; +MONTELUKAST SOD10 M1 PO; +PREPARATION H O28 GM TOP; +VENTOLIN HFA18 GM INH
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
[2017-07-08 20:46] VITALS: BP 138/91
--- NOTE | 2017-07-08 22:38 | CT SCAN REPORT ---
EXAMINATION: CT HEAD without contrast CLINICAL INFORMATION: Fall COMPARISON: No prior CT scan available for comparison. TECHNIQUE: Computer axial tomographic sections acquired at 2.5 mm thin sections. DLP: 959 mGy-cm FINDINGS: CEREBRAL HEMISPHERES: There is no evidence of intra-axial or extra-axial mass, hemorrhage or acute infarct. BRAIN PARENCHYMA: Normal flannery-white matter differentiation. SUBDURAL SPACE: No bleed. BASAL GANGLIA AND PINEAL GLAND: Unremarkable VENTRICLES: Symmetric and normal in size. CEREBELLUM AND BRAINSTEM: No space-occupying mass, hemorrhage or acute infarct. CEREBELLOPONTINE ANGLES: No lesion found. ORBITS: No intraorbital mass. VESSELS: Unremarkable SKULL BASE: Unremarkable INCLUDED SINUSES AT SKULL BASE: Clear SKULL AND SKIN: No fracture or bone lesion found. IMPRESSION: No CT evidence of intracranial space-occupying mass, bleed or infarct.
--- NOTE | 2017-07-08 22:45 | CT SCAN REPORT ---
EXAMINATION: CT CHEST, ABDOMEN AND PELVIS WITHOUT CONTRAST CLINICAL INFORMATION: Fall status post trauma with right hip pain. COMPARISON: CT abdomen/pelvis 11/05/2016. TECHNIQUE: Contiguous axial thin section helical images of the chest, abdomen and pelvis were performed following the administration of oral contrast and 100 mL of intravenous Omnipaque 300. The data set was reformatted in the coronal and sagittal planes and reviewed on an independent workstation. Dose Length Product: 646.09 mGycm. FINDINGS: LUNGS: The lungs are clear with no evidence of inflammation or nodules. Minimal scattered emphysematous changes. MEDIASTINUM: No mediastinal or hilar adenopathy. No pericardial effusion. PLEURA: There is no pleural effusion. No pleural mass or thickening. AXILLA: No lymphadenopathy. LIVER, GALLBLADDER, BILIARY TREE: Low-density lesion within the right hepatic lobe measuring up to 1.9 x 2.0 x 1.6 cm (AP, transverse, craniocaudal) measures low density and appears stable from prior examination, most likely representing a cyst. Additional too small to characterize hypodensity within the periphery of segment 6 also most likely represents a cyst. The gallbladder is normal. No biliary dilation. PANCREAS: Normal SPLEEN: Normal ADRENAL GLANDS, KIDNEYS, URETERS, AND BLADDER: The kidneys demonstrate normal size and contour. There is a isodense 2.7 cm right renal mass which appears stable in size from prior examination and is better evaluated on prior contrast examination dated 11/05/2016 and is most compatible with a cyst. No renal calculi or hydronephrosis. BOWEL LOOPS: No obstruction. No focal wall thickening or inflammatory process LYMPH NODES/RETROPERITONEUM: No retroperitoneal, mesenteric, or pelvic adenopathy. No ascites or free pelvic fluid OSSEOUS STRUCTURES: No acute osseous findings. 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 ADDITIONAL FINDINGS: None IMPRESSION: No acute traumatic injury of the chest, abdomen or pelvis. Stable findings, as above..
--- NOTE | 2017-07-08 22:48 | CT SCAN REPORT ---
EXAMINATION: CT CERVICAL SPINE WITHOUT CONTRAST CLINICAL INFORMATION: Fall trauma COMPARISON: 2016 TECHNIQUE: Computed axial tomographic sections acquired at 10 0.625 mm with reconstruction in the axial sagittal and coronal plane. DLP: 612 mGy-cm FINDINGS: 7 cervical vertebrae identified maintaining the proper height and alignments, loss of normal cervical lordosis likely spasm. Narrowing of disc spaces at the C5-C6, C6-C7 combined with the developed osteophytes from the edges of articular surface and the plates suggest degenerative disc disease. Paravertebral soft tissue unremarkable, included lung apices are clear. SPINAL LEVELS: C2-C3: No fracture. No osseous or central stenosis. C3-C4: No fracture, mild DJD of facet joints, no central or foraminal stenosis. C4-C5: No fracture, there is DJD facet joints especially the LEFT, no narrowing of the central canal or foramen. C5-C6: There is degenerative disc disease, no fracture. Mild narrowing of the central canal probably no stenosis. C6-C7: Degenerative disc disease. No fractures. Paravertebral soft tissue unremarkable. C7-T1: Mild degenerative disc disease. No fracture. Paravertebral soft tissue unremarkable. No osseous a stenosis. IMPRESSION: 1. No fracture. 2. Degenerative disc disease especially at C5-C6 and C6-C7. 3. Loss of normal cervical lordosis likely spasm.
[2017-07-10] MEDS ORDERED: CYCLOBENZAPRINE5 M2 PO (23:16)
== END 2017-07-08 23:51 ==
LOC: ERH 20:39
DX: S70.01XA Contusion of right hip, initial encounter (principal); F10.129 Alcohol abuse with intoxication, unspecified; V03.00XA Pedestrian on foot injured in collision with car, pick-up truck or van in nontraffic accident, initial encounter; Y92.9 Unspecified place or not applicable; Y93.9 Activity, unspecified
CPT/HCPCS: 74176

== ENCOUNTER 2017-08-05 14:32 | Inpatient (IN) | payer OTHER ==
[~2017-08-05] VITALS: Ht 167.6 cm; Wt 65.8 kg
[2017-08-05 15:14] LABS: ABSOLUTE BASOPHIL COUNT 0 /CUMM (0.0-0.2); ABSOLUTE EOSINOPHIL COUNT 0 /CUMM (0.0-0.7); HEMATOCRIT 42.5 % (42-52); MEAN CORPUSCULAR HGB CONC 33.4 G/DL (33.0-37.0); MEAN CORPUSCULAR VOLUME 90.2 FL (80.0-94.0); RED BLOOD CELL CT 4.71 /CUMM (4.70-6.10); WHITE BLOOD CELL COUNT 4.8 /CUMM (4.8-10.8)
[2017-08-05 15:21] LABS: ABSOLUTE GRANULOCYTE CT 3.4 /CUMM (1.4-6.5); ABSOLUTE LYMPH COUNT 0.5 /CUMM (1.2-3.4); ABSOLUTE MONOCYTE COUNT 0.8 /CUMM (0.10-0.60); BASOPHIL % 0.8 % (0.0-2.0); EOSINOPHIL % 0.2 % (0-5); MEAN CORPUSCULAR HGB 30.2 PG (27.0-31.0); MEAN PLATELET VOLUME 10.1 FL (7.4-10.4); RBC DISTRIBUTION WIDTH 14.8 % (11.5-14.5)
[2017-08-05 15:22] LABS: PLATELET COUNT 190 /CUMM (130-400)
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
--- NOTE | 2017-08-05 16:08 | RADIOLOGY REPORT ---
EXAMINATION: XR CHEST CLINICAL INFORMATION: Cough and hypoxia COMPARISON: CT scan of July 08, 2017 and chest x-rays of February 16, 2017 and November 14, 2016 TECHNIQUE: 2 views of the chest were obtained. FINDINGS: There is a small region of parenchymal disease seen in the mid right lung on PA film and on lateral film appears to lie within the superior segment of the right lower lobe. There is also a region of disease seen in the left lower lobe. Heart normal size. No evidence of pulmonary edema. No pneumothorax or pleural effusion. Percutaneous pacemaker seen in place. IMPRESSION: Regions of disease within the superior segment right lower lobe and left lower lobe consistent with pneumonia.
--- NOTE | 2017-08-05 17:55 | History & Physical ---
Jennifer GLOVERZuhair 08/05/17 9927: General Information and HPI History of Present Illness: 76-year-old man with past medical history of COPD not on home oxygen, asthma, GERD, EtOH abuse, hypertension, and hyperlipidemia evaluation of worsening cough. Patient reports approximately 3 days ago he developed a cough that slowly became productive of white sputum. During this time he felt mildly short of breath with fatigue and dizziness. He reports being recently treated for "bronchitis" but does not know what the treatment was. He reports also family members around him with similar illnesses. For persistence of his symptoms he came to the [facility] ED for evaluation. Presently patient states that he otherwise feels comfortable but admits that his cough is still productive of a white thick sputum. Review of systems He otherwise denies any headache, fever, chills, blurred/double vision, chest pain, palpitations, heartburn, orthopnea, nausea, vomiting, diarrhea, bowel/ bladder complaints. Objective Vital signs -Temperature: 96.1 -Heart rate: 97 -Respiratory rate: 18 -Systolic BP: 130 -Diastolic BP: 81 -O2 sat: 89-92% on 1 L O2 via nasal cannula Physical exam -General: well developed, ill-appearing elderly -[place] man in no acute distress -HEENT: NCAT, PERRL, EOMI, anicteric sclera, -Neck: Supple, no JVD, trachea midline, no accessory respiratory muscle use -Cardio: S1, S2 w/o murmurs/gallops/rubs -Resp: Bibasilar expiratory wheezing with scattered rhonchi -GI: soft, nontender, nondistended, bowel sounds present -Neuro: Awake and alert, CN II - XII grossly intact -Extremities: no edema, pulses intact Labs/imaging/studies -CBC: WBC 4.8, hemoglobin 14.2, hematocrit 42.5, platelet 190 -BMP: Sodium 135, potassium 2.9, chloride 93, CO2 30, urea 28, creatinine 1.0, anion gap 12, glucose 136 -LFT: Within normal limits -Miscellaneous: Troponin I <0.01, lactic acid 2.0 -CXR: Bilateral lower lobe pneumonia -EKG: Normal sinus rhythm with new T-wave inversions in V1-V3 -Echocardiogram 2015: LVEF 60-65% with stage I diastolic dysfunction, RV pressure 25 mmHg Assessment 76-year-old man with multiple medical problems seen for evaluation of progressively worsening productive cough. Patient remains afebrile without leukocytosis however has diffuse expiratory wheezing with diminished airflow concerning for COPD exacerbation with consolidation. He was reportedly hypoxic to 87% on room air in triage. Chest x -ray demonstrates a bilateral lower lobe pneumonia for which she was given intravenous ceftriaxone/azithromycin after blood cultures were drawn in the ED. Rapid flu was tested and was negative. For his wheezing he received a dose of intravenous Solu-Medrol and DuoNeb treatment. He was found to be hypokalemic for which was orally repleted. Patient reports drinking up to 1 pint of liquor per day with his last drink being 3-4 days ago. He denies ever having had alcohol withdrawal seizures, ICU admission, intubation, or Ativan drip. Patient is to be admitted to the telemetry floor for serial troponin/EKG, cardiology evaluation, and baseline echocardiogram. He is to be continued on intravenous steroids, ceftriaxone/azithromycin, and nebulizer treatments. CIWA protocol is to be initiated with Ativan when necessary. He is to be given gentle fluid hydration. Problem List -Community-acquired pneumonia -COPD exacerbation -Acute hypoxic respiratory failure -New T wave inversions -Hypokalemia -History of COPD, not on home oxygen -Asthma -Hypertension -Hyperlipidemia -GERD -History of EtOH abuse -History of internal hemorrhoids Plan -Admit to telemetry floor -Telemetry monitoring -CIWA -TRC with scheduled nebs -Supplemental oxygen, old >92%, taper as tolerated -D5 1/2 NS + 20 mEq KCL @ 75 mL/hr -Ceftriaxone 1 g IV daily -Azithromycin 500 mg IV daily -Solu-Medrol 40 mg IV every 8 hours -Ativan when necessary for CIWA -Cardiology consult for new T-wave inversions -Blood/sputum cultures -Strep/Legionella antigens -Trend troponin/EKG until peak or 3 negative sets -Echocardiogram -Monitor BMP daily for potassium -Pain control with -Heart healthy diet -DVT prophylaxis with subcutaneous heparin -Full code Allergies/Medications Allergies: Coded Allergies: aspirin (Mild, GI UPSET 11/14/16) Past History Travel History Traveled to [place] past 21 day No Medical History Neurological: NONE EENT: allergies Cardiovascular: hypertension, hyperlipidemia Respiratory: asthma, bronchitis, COPD, pneumonia Gastrointestinal: GERD Hepatic: NONE Renal: NONE Musculoskeletal: NONE Psychiatric: NONE Endocrine: NONE Blood Disorders: NONE Cancer(s): 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 Exam & Diagnostic Data Last 24 Hrs of Vital Signs/I&O Vital Signs Date Time Temp Pulse Resp B/P B/P Pulse O2 O2 Flow FiO2 Mean Ox Delivery Rate 08/05 1949 93 Nasal 2.0L Cannula 08/05 1924 Nasal 2.0L Cannula 08/05 1853 95 Nasal 2.0L Cannula 08/05 1712 105 18 148/74 94 Nasal 2.0L Cannula 08/05 1537 92 Nasal 1.0L Cannula 08/05 1521 89 Room Air 08/05 1438 96.1 97 18 130/81 89 Room Air Intake & Output 08/05 1600 08/05 0800 08/05 0000 Intake Total Output Total Balance Patient 68.039 kg Weight Weight Reported by Patient Measurement Method Assessment/Plan As Ranked By This Provider Problem List: 1. COPD exacerbation 2. Pneumonia 3. Hypoxia Core Measures/Misc (01/01) Acute Coronary Syndrome ACS Diagnosis: No Congestive Heart Failure Congestive Heart Failure Diagnosis No Cerebrovascular Accident CVA/TIA Diagnosis: No VTE (View Protocol) VTE Risk Factors Age>40 No Mechanical VTE Prophylaxis d/t N/A MechProphylax Ordered No VTE Pharm Prophylaxis d/t NA PharmProphylax ordered Sepsis (View protocol) Sepsis Present: No Wilber GLOVER, [facility] 08/05/172121: General Information and HPI Allergies/Medications Home Med list Albuterol Sulfate (Ventolin Hfa) 90 MCG HFA.AER.AD 1-2 PUF INH Q4H PRN ASTHMA (Reported) Amlodipine Besylate 5 MG TABLET 1 TAB PO DAILY HEART/BP (Reported) Budesonide/Formoterol Fumarate (Symbicort 160-4.5 Mcg Inhaler) 160 MCG-4.5 MCG/ ACTUATION HFA.AER.AD 2 PUF INH BID ASTHMA (Reported) Cetirizine HCl 10 MG TABLET 1 TAB PO DAILY ALLERGIES (Reported) Citalopram Hydrobromide (Citalopram HBr) 40 MG TABLET 1 TAB PO DAILY MENTAL HEALTH (Reported) Fluticasone Propionate 50 MCG/ACTUATION SPRAY.SUSP 2 SPRAY NASB DAILY ALLERGIES (Reported) Hydrochlorothiazide 25 MG TABLET 1 TAB PO DAILY DIURETIC/BP (Reported) Metoprolol Succinate 25 MG TAB 1 TAB PO DAILY HEART HEALTH (Reported) Montelukast Sodium 10 MG TABLET 1 TAB PO DAILY ALLERGIES/ASTHMA (Reported) Attending MD Review Statement Attending Statement Attending MD Statement: examined this patient, discuss w/resident/PA/FURNITURE REPAIR TECHNICIAN, agreed w/resident/PA/FURNITURE REPAIR TECHNICIAN, reviewed images, amended to note Attending Assessment/Plan: 76 yo M with h/o HTN, ?COPD, NSVT and prior syncope s/p LINQ, alcohol abuse, last admitted to [facility] (October 2016) for lower GI bleed 2/2 hemorrhoids, is here for evaluation of 3-4 day history of cough productive of yellow green phlegm, exertional dyspnea, fatigue and dizziness. Chills+, diaphoresis+. Denies chest pain, palpitations or lightheadedness. 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 He also states that his LINQ device is still in place. He quit smoking, but continues to drink about 1/2 to 1 pint of Vodka daily. He reports this last drink was 3 days ago, but he drinks almost on a daily basis. He is not very forthcoming of this information. Vitals: afebrile, tachycardic, BP 148/74, sats 89% RA --> 92-93% on 2L. Exam: awake, alert, oriented, no distress, dry mucosa, Chest bibasilar rhonchi with diffuse expiratory wheeze, otherwise unremarkable exam. Labs: no leukocytosis, Na 135, K 2.9, BUN 28, creat 1.0, Mag 2.0, lactic acid 2.0, trop neg. Flu swab negative. CXR: bibasilar disease consistent with pneumonia. Percutaneous pacemaker seen in place (probably the LINQ device). EKG: sinus rhythm, TWI in V1-V3 (new), possible U-waves and nonspecific T-wave changes in inferior and lateral leads. Echo (2014): EF 60-65%, stage 1 diastolic dysfunction. Assessment and plan: 1. Acute hypoxic respiratory failure 2. Multifocal bibasilar community acquired pneumonia 3. Acute exacerbation of underlying bronchospasm ?COPD (no PFTs available) 4. EKG changes probably nonspecific 5. Hypokalemia 6. Alcohol dependence 7. Essential hypertension 8. History of recurrent syncope s/p LINQ device - Admit to Telemetry - Watch for arrhythmias - Total respiratory care with nebs scheduled and as needed - Blood and sputum cultures - Ceftriaxone and Azithro - IV solumedrol Q8 - IV fluids with potassium supplementation - Mucinex BID - Banana bag x 1 - Serial EKG and troponin, obtain echo and Cardio consult - Check alcohol level - CIWA protocol, ativan per CIWA - Resume home meds metoprolol 25 QD, symbicort, amlodipine, citalopram, cetirizine and singulair. - Hold HCTZ. DVT ppx Lovenox. Full code.
--- NOTE | 2017-08-05 21:23 | Admission Certification ---
Admission Certification Certification Statement - As attending physician, I certify that at the time of - admission, based on clinical presentation, severity of - symptoms, need for further diagnostic testing and - therapeutic interventions, and risk of adverse outcomes - without in-hospital treatment, in my clinical assessment, - this patient requires an acute hospital stay for a minimum - of two nights or longer. I have also considered psychsocial - factors such as support system, advanced age, financial - issues, cognitive issues, and failed out-patient treatments, - past re-admission history, safety of patient, and lack of - compliance as applicable. Specific rationale supporting this admission is: Acute hypoxic respiratory failure, bibasilar pneumonia with COPD exacerbation, needs Telemetry monitoring for acute EKG changes.
[2017-08-05] MEDS ORDERED: METOPROLOL SUCC25 M1 PO (22:39)
[2017-08-05 22:56] VITALS: BP 138/80
[2017-08-06] VITALS (10 sets, daily range): BP systolic 120–128; BP diastolic 70–80
--- NOTE | 2017-08-06 08:58 | PN- Housestaff ---
Davis GLOVER,Niels 08/06/17 0858: Subjective Follow-up For: sob copd Subjective: Saw pt at bedside this AM. He was sitting at edge of bed and eating breakfast. He was on 2L o2 and stated he had some shortness of breath but no more than his baseline. No other acute overnight events. Review of Systems Constitutional: Reports: no symptoms. EENTM: Denies: blurred vision. Cardiovascular: Denies: chest pain, palpitations. Respiratory: Reports: short of breath. Denies: cough. Gastrointestinal: Denies: abdominal pain, diarrhea, nausea, vomiting. Genitourinary: Reports: no symptoms. Musculoskeletal: Reports: no symptoms. Objective Last 24 Hrs of Vital Signs/I&O Vital Signs Date Time Temp Pulse Resp B/P B/P Pulse O2 O2 Flow FiO2 Mean Ox Delivery Rate 08/06 0954 96 Nasal 2.0L Cannula 08/06 0916 93 128/78 08/06 0916 93 128/78 08/06 0914 93 128/78 08/06 0800 Nasal 2.0L Cannula 08/06 0800 97.8 96 20 120/80 08/06 0624 97.8 85 20 120/80 95 Nasal Cannula 08/06 0000 Nasal 2.0L Cannula 08/05 2256 96.6 92 20 138/80 95 Nasal 2.0L Cannula 08/05 1949 93 Nasal 2.0L Cannula 08/05 1924 Nasal 2.0L Cannula 08/05 1853 95 Nasal 2.0L Cannula 08/05 1712 105 18 148/74 94 Nasal 2.0L Cannula 08/05 1537 92 Nasal 1.0L Cannula 08/05 1521 89 Room Air 08/05 1438 96.1 97 18 130/81 89 Room Air Intake & Output 08/06 1600 08/06 0800 08/06 0000 Intake Total 1400 955 Output Total Balance 1400 955 Intake, IV 1200 475 Intake, Oral 200 480 Patient 70.307 kg Weight Weight Reported by Patient Measurement Method Physical Exam General Appearance: Alert, Oriented X3, Cooperative, No Acute Distress HEENT: Atraumatic, PERRLA, EOMI Neck: Supple Cardiovascular: Regular Rate, Normal S1, Normal S2 Lungs: wheezes present on exhalation Abdomen: Soft, No Tenderness Extremities: No Edema Current Medications: Current Medications Sig/Ana Start time Last Medication Dose Route Stop Time Status Admin Acetaminophen 650 MG Q6P PRN 08/05 1800 AC PO Albuterol Sulfate 3 ML TID 08/05 2100 AC 08/06 INH 0953 Albuterol Sulfate 3 ML Q6 PRN 08/05 1815 AC INH Albuterol Sulfate 3 ML ONCE ONE 08/05 1530 DC 08/05 INH 08/05 1531 1536 Amlodipine Besylate 5 MG DAILY 08/06 0900 AC 08/06 PO 0916 Aspirin 0 .STK-MED ONE 08/05 1620 DC PO Aspirin 325 MG ONCE ONE 08/05 1530 DC 08/05 PO 08/05 1531 1625 Azithromycin 500 MG DAILY@1630 08/06 1630 AC Sodium Chloride 250 ML IV Azithromycin 500 MG ONCE ONE 08/05 1530 DC 08/05 Dextrose/Water 250 ML IV 08/05 1629 1625 Budesonide/ 2 PUF BID 08/05 2235 AC 08/06 Formoterol Fumarate INH 0916 Ceftriaxone Sodium 1,000 MG DAILY@1630 08/06 1630 AC IV Ceftriaxone Sodium 0 .STK-MED ONE 08/05 1620 DC .ROUTE Ceftriaxone Sodium 1,000 MG ONCE ONE 08/05 1530 DC 08/05 IV 08/05 1531 1625 Citalopram 40 MG DAILY 08/06 0900 AC 08/06 Hydrobromide PO 0916 Cyanocobalamin/ 1 BAG ONCE ONE 08/05 2345 DC 08/06 Thiamine/Pyridoxine IV 08/06 0744 0230 Dextrose/Water 1,000 ML Guaifenesin 600 MG Q12 08/05 2100 AC 08/06 PO 0916 Guaifenesin/ 10 ML Q6P PRN 08/06 0215 AC 08/06 Dextromethorphan PO 0920 Heparin Sodium 5,000 UNIT Q8 08/05 2200 AC 08/05 (Porcine) SC 2125 Ipratropium [place] 2.5 ML ONCE ONE 08/05 1530 DC 08/05 INH 08/05 1531 1536 Loratadine 10 MG DAILY 08/06 0900 AC 08/06 PO 0916 Lorazepam 0 Q1P PRN 08/05 1815 AC IV Melatonin 3 MG AT BEDTIME 08/06 0215 AC 08/06 PO 0229 Methylprednisolone 40 MG Q12 08/06 2100 AC IV Methylprednisolone 40 MG Q8 08/06 0600 RI 08/06 IV 0537 Methylprednisolone 40 MG Q12 08/05 2100 DC IV Methylprednisolone 0 .STK-MED ONE 08/05 1620 DC .ROUTE Methylprednisolone 125 MG ONCE ONE 08/05 1530 DC 08/05 IV 08/05 1531 1625 Metoprolol Succinate 25 MG DAILY 08/06 0900 AC 08/06 PO 0916 Metoprolol Tartrate 25 MG DAILY 08/06 0900 CAN PO Metoprolol Tartrate 25 MG DAILY 08/06 09 CAN PO Montelukast Sodium 10 MG DAILY 08/06 09 AC 08/06 PO 0916 Non-Formulary 0 SEE ADMIN CRITERIA 08/05 2245 DC Medication ANY Potassium Chloride 40 MEQ ONCE ONE 08/06 0800 DC 08/06 PO 08/06 0801 0916 Potassium Chloride 20 MEQ .[id number] 08/05 1800 DC 08/05 Dextrose/Sodium 1,000 ML IV 08/06 0719 1947 Chloride Potassium Chloride 0 .STK-MED ONE 08/05 1620 DC PO Potassium Chloride 40 MEQ ONCE ONE 08/05 1600 DC 08/05 PO 08/05 1601 1625 Assessment/Plan Assessment: ASSESSMENT: 76-year-old man with multiple medical problems seen for evaluation of progressively worsening productive cough. He was reportedly hypoxic to 87% on room air in triage. Chest x-ray demonstrates a bilateral lower lobe pneumonia. Notably, pt reports drinking up to 1 pint of liquor per day with his last drink being 3-4 days ago. Given his radiologic findings and presentation, pt is treated for COPD superimposed by PNA (CAP vs aspiraton given hx EtOH). PLAN: Community-acquired pneumonia: WBC 3.2 today. Pt remaines afebrile but on steroids. Unsure of etiology of leukopenia. Con't monitor. * Ceftriaxone 1 g IV daily * Azithromycin 500 mg IV daily * Blood/sputum cultures * Strep/Legionella antigens COPD exacerbation AND Acute hypoxic respiratory failure * TRC with scheduled nebs * Supplemental oxygen, old >92%, taper as tolerated * Solu-Medrol 40 mg IV every 8 hours * Guaifenacin * Loratadine * Singulair * Symbicort * Albuterol New T wave inversions * Admit to telemetry floor * 3 negative sets troponin * Echocardiogram pending * Appreciate cardiology consult for new T-wave inversions Hypokalemia: Today 3.8 * Monitor BMP daily for potassium Hypertension: BP between 138/80 and 120/80. * Norvasc 5mg daily Depression * Celexa History of EtOH abuse * CIWA Hyponatremia: Sodium 135 today. * Con't monitor -Heart healthy diet -DVT prophylaxis with subcutaneous heparin -Full code Problem List: 1. Depression 2. COPD exacerbation Pain Ratin Pain Location: none Pain Goal: Remain pain free Pain Plan: none Tomorrow's Labs & Rationales: cbc bep Isaac Hammonds 08/06/17 1337: Attending MD Review Statement Attending Statement Attending MD Statement: examined this patient, discuss w/resident/PA/INTERIOR DESIGN COORDINATOR, agreed w/resident/PA/INTERIOR DESIGN COORDINATOR, discussed with family, reviewed EMR data (avail), discussed with nursing, discussed with case mgmt, reviewed images, amended to note
[2017-08-06 09:32] LABS: ABSOLUTE BASOPHIL COUNT 0 /CUMM (0.0-0.2); ABSOLUTE EOSINOPHIL COUNT 0 /CUMM (0.0-0.7); ABSOLUTE GRANULOCYTE CT 2.6 /CUMM (1.4-6.5); ABSOLUTE LYMPH COUNT 0.4 /CUMM (1.2-3.4); ABSOLUTE MONOCYTE COUNT 0.2 /CUMM (0.10-0.60); BASOPHIL % 0.5 % (0.0-2.0); EOSINOPHIL % 0.1 % (0-5); GRANULOCYTE % 80.7 % (42.2-75.2); HEMATOCRIT 38.3 % (42-52); MEAN CORPUSCULAR HGB 30.5 PG (27.0-31.0); MEAN CORPUSCULAR HGB CONC 33.8 G/DL (33.0-37.0); MEAN CORPUSCULAR VOLUME 90.2 FL (80.0-94.0); MEAN PLATELET VOLUME 9.6 FL (7.4-10.4); RBC DISTRIBUTION WIDTH 14.3 % (11.5-14.5); RED BLOOD CELL CT 4.25 /CUMM (4.70-6.10)
[2017-08-06 10:51] LABS: PLATELET COUNT 194 /CUMM (130-400); WHITE BLOOD CELL COUNT 3.2 /CUMM (4.8-10.8)
--- NOTE | 2017-08-06 21:26 | Cons- Cardiology ---
General Information and HPI Consulting Request Date of Consult: 08/06/17 Requested By: Wilber GLOVER,Debi History of Present Illness: This patient is a 76 year old male with history of hypertension, dislipidemia and COPD/asthma. He presented to the ER for evaluation of shortness of breath and a productive cough. Otherwise the patient denies chest pain, pressure, tightness, lightheadedness or palpitations. The patient was noted to have non- specific T wave changes on his ECG. This patient reportedly had prior bouts of NSVT but has a normal EF on his recent echo. Allergies/Medications Allergies: Coded Allergies: aspirin (Mild, GI UPSET 11/14/16) Home Med List: Albuterol Sulfate (Ventolin Hfa) 90 MCG HFA.AER.AD 1-2 PUF INH Q4H PRN ASTHMA (Reported) Amlodipine Besylate 5 MG TABLET 1 TAB PO DAILY HEART/BP (Reported) Budesonide/Formoterol Fumarate (Symbicort 160-4.5 Mcg Inhaler) 160 MCG-4.5 MCG/ ACTUATION HFA.AER.AD 2 PUF INH BID ASTHMA (Reported) Cetirizine HCl 10 MG TABLET 1 TAB PO DAILY ALLERGIES (Reported) Citalopram Hydrobromide (Citalopram HBr) 40 MG TABLET 1 TAB PO DAILY MENTAL HEALTH (Reported) Fluticasone Propionate 50 MCG/ACTUATION SPRAY.SUSP 2 SPRAY NASB DAILY ALLERGIES (Reported) Hydrochlorothiazide 25 MG TABLET 1 TAB PO DAILY DIURETIC/BP (Reported) Metoprolol Succinate 25 MG TAB 1 TAB PO DAILY HEART HEALTH (Reported) Montelukast Sodium 10 MG TABLET 1 TAB PO DAILY ALLERGIES/ASTHMA (Reported) Review of Systems Review of Systems: A review of systems is unremarkable. 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 Home Services at Home: None Smoking Status: Former Smoker Exam & Diagnostic Data Vital Signs and I&O Vital Signs Date Time Temp Pulse Resp B/P B/P Pulse O2 O2 Flow FiO2 Mean Ox Delivery Rate 08/06 2017 95 Nasal 2.0L Cannula 08/06 1800 97.9 106 18 122/70 08/06 1600 97.9 88 16 122/70 08/06 1402 97.9 86 20 122/70 95 Nasal Cannula 08/06 1400 97.9 86 20 122/70 08/06 1200 98.2 92 18 128/78 08/06 1000 97.8 93 20 128/78 08/06 0954 96 Nasal 2.0L Cannula 08/06 0916 93 128/78 08/06 0916 93 128/78 08/06 0914 93 128/78 08/06 0800 Nasal 2.0L Cannula 08/06 0800 97.8 96 20 120/80 08/06 0624 97.8 85 20 120/80 95 Nasal Cannula 08/06 0000 Nasal 2.0L Cannula 08/05 2256 96.6 92 20 138/80 95 Nasal 2.0L Cannula Intake & Output 08/06 1600 08/06 0800 08/06 0000 08/05 1600 08/05 0800 08/05 0000 Intake Total 1227.5 1400 955 Output Total Balance 1227.5 1400 955 Intake, IV 707.5 1200 475 Intake, Oral 520 200 480 Number 1 Bowel Movements Patient 155 lb 150 lb Weight Weight Reported by Patient Reported by Patient Measurement Method Physical Exam: General:WD/WN male in NAD; alert and oriented x 3 HEENT: NC/AT, PERRL, EOMI Neck: no JVD, no carotid bruit Heart: RRR Lungs: clear bilaterally Abdomen: soft, NT, +ve bowel sounds, Extremties: no edema Assessment/Plan Assessment/Plan * This patient is active at baseline and is without chest pain or findings of myocardial ischemia or decompensated heart failure. Her ECG changes are non- specific. Consult Acknowledgment - Thank you for your consult request.
[2017-08-07 07:12] VITALS: BP 162/94
--- NOTE | 2017-08-07 07:28 | PN- Housestaff ---
Subjective Follow-up For: CPAP COPD exacerbation Tele-Events Since Last Visit: Sinus rhythm HR 70s-90s Subjective: Patient was seen and examined at bedside. He was resting comfortably. He had no acute events overnight. He feels much better today, continues to have a productive cough with whitish sputum however he is no longer short of breath, and has been able to ambulate as he normally would. He denies any chest pain, lightheadedness, dizziness, syncope. Review of Systems Constitutional: Denies: chills, fever. EENTM: Reports: no symptoms. Cardiovascular: Reports: no symptoms. Respiratory: Reports: cough. Denies: short of breath. Gastrointestinal: Reports: no symptoms. Genitourinary: Reports: no symptoms. Musculoskeletal: Reports: no symptoms. Skin: Reports: no symptoms. Neurological/Psychological: Reports: no symptoms. Objective Last 24 Hrs of Vital Signs/I&O Vital Signs Date Time Temp Pulse Resp B/P B/P Pulse O2 O2 Flow FiO2 Mean Ox Delivery Rate 08/07 0712 98.0 82 20 162/94 99 08/068 97.6 91 18 124/76 96 Nasal 2.0L Cannula 08/06 2233 Nasal 2.0L Cannula 08/06 2017 95 Nasal 2.0L Cannula 08/06 1800 97.9 106 18 122/70 08/06 1600 97.9 88 16 122/70 08/06 1402 97.9 86 20 122/70 95 Nasal Cannula 08/06 1400 97.9 86 20 122/70 08/06 1200 98.2 92 18 128/78 08/06 1000 97.8 93 20 128/78 08/06 0954 96 Nasal 2.0L Cannula 08/06 0916 93 128/78 08/06 0916 93 128/78 08/06 0914 93 128/78 08/06 0800 Nasal 2.0L Cannula 08/06 0800 97.8 96 20 120/80 Intake & Output 08/07 0800 08/07 0000 08/06 1600 Intake Total 546 550 2008.5 Output Total Balance 335 454 1632.5 Intake, IV 280 707.5 Intake, Oral 300 590 520 Number 1 Bowel Movements Patient 144 lb Weight Weight Bed scale Measurement Method Physical Exam General Appearance: Alert, Oriented X3, Cooperative, No Acute Distress Sepsis Skin Exam (color): Normal for Ethnicity Cardiovascular: Regular Rate, Normal S1, Normal S2 Lungs: Scant rhonchi, most prominent in the RLL Abdomen: Normal Bowel Sounds, Soft, No Tenderness Neurological: Normal Speech, Normal Tone, Sensation Intact Extremities: No Clubbing, No Cyanosis, No Edema Current Medications: Current Medications Sig/Ana Start time Last Medication Dose Route Stop Time Status Admin Acetaminophen 650 MG Q6P PRN 08/05 1800 AC PO Albuterol Sulfate 3 ML TID 08/05 2100 AC 08/06 INH 2016 Albuterol Sulfate 3 ML Q6 PRN 08/05 1815 AC INH Amlodipine Besylate 5 MG DAILY 08/06 0900 AC 08/06 PO 0916 Azithromycin 500 MG DAILY@1630 08/06 1630 AC 08/06 Sodium Chloride 250 ML IV 1630 Budesonide/ 2 PUF BID 08/05 2235 AC 08/06 Formoterol Fumarate INH 2027 Ceftriaxone Sodium 1,000 MG DAILY@1630 08/06 1630 AC 08/06 IV 1630 Citalopram 40 MG DAILY 08/06 09 AC 08/06 Hydrobromide PO 0916 Cyanocobalamin/ 1 BAG ONCE ONE 08/05 2345 DC 08/06 Thiamine/Pyridoxine IV 08/06 0744 0230 Dextrose/Water 1,000 ML Guaifenesin 600 MG Q12 08/05 2100 AC 08/06 PO 2027 Guaifenesin/ 10 ML Q6P PRN 08/06 0215 AC 08/06 Dextromethorphan PO 2030 Heparin Sodium 5,000 UNIT Q8 08/05 2200 AC 08/05 (Porcine) TN 2125 Loratadine 10 MG DAILY 08/06 09 AC 08/06 PO 0916 Lorazepam 0 Q1P PRN 08/05 1815 AC IV Melatonin 3 MG AT BEDTIME 08/06 0215 AC 08/06 PO 8 Methylprednisolone 40 MG Q12 08/06 2100 AC 08/06 IV 2029 Methylprednisolone 40 MG Q8 08/06 0600 DC 08/06 IV 0537 Metoprolol Succinate 25 MG DAILY 08/06 0900 AC 08/06 PO 0916 Montelukast Sodium 10 MG DAILY 08/06 0900 AC 08/06 PO 0916 Potassium Chloride 40 MEQ ONCE ONE 08/06 0800 DC 08/06 PO 08/06 0801 0916 Assessment/Plan Assessment: 76-year-old man with multiple medical problems seen for evaluation of progressively worsening productive cough. He was reportedly hypoxic to 87% on room air in triage. Chest x-ray demonstrates a bilateral lower lobe pneumonia. Notably, pt reports drinking up to 1 pint of liquor per day with his last drink being 3-4 days ago. Given his radiologic findings and presentation, pt is treated for COPD superimposed by PNA (CAP vs aspiraton given hx EtOH). Community-acquired pneumonia: WBC improved to 4.2 today. Pt remaines afebrile but on steroids. We'll continue to monitor CBC * Antibiotics changed to Augmentin 875 twice a day for 3 more days * Blood/sputum cultures showing no growth so far * Strep/Legionella antigens negative * Anticipated discharge tomorrow if remains stable overnight COPD exacerbation AND Acute hypoxic respiratory failure * TRC with scheduled nebs * Supplemental oxygen, goal>92%, and he needs to taper * Switched to 40 mg prednisone, will discharge on a prednisone taper * Guaifenacin * Loratadine * Singulair * Symbicort * Albuterol New T wave inversions * Cleared by cardiology to discontinue telemetry monitoring * 3 negative sets troponin * Follow-up echocardiogram * Appreciate cardiology consult for new T-wave inversions Hypokalemia: Today 4.2 * Continue to monitor BEP daily for potassium Hypertension: 1 elevated reading overnight, otherwise normotensive * Norvasc 5mg daily Depression * Celexa History of EtOH abuse * CIWA, patient's CIWAs have been 0s and has not required any Ativan Hyponatremia: Sodium 135 today. * Con't monitor -Heart healthy diet -DVT prophylaxis with subcutaneous heparin -Full code Problem List: 1. Pneumonia 2. COPD exacerbation Pain Ratin Pain Location: none Pain Goal: Remain pain free Pain Plan: pain pathway Tomorrow's Labs & Rationales: cbc, bep
[2017-08-07 08:05] LABS: ABSOLUTE BASOPHIL COUNT 0 /CUMM (0.0-0.2); ABSOLUTE EOSINOPHIL COUNT 0 /CUMM (0.0-0.7); ABSOLUTE GRANULOCYTE CT 3.2 /CUMM (1.4-6.5); ABSOLUTE LYMPH COUNT 0.5 /CUMM (1.2-3.4); ABSOLUTE MONOCYTE COUNT 0.5 /CUMM (0.10-0.60); BASOPHIL % 0.2 % (0.0-2.0); EOSINOPHIL % 0 % (0-5); GRANULOCYTE % 77.7 % (42.2-75.2); MEAN CORPUSCULAR HGB 30.1 PG (27.0-31.0); MEAN CORPUSCULAR VOLUME 91.4 FL (80.0-94.0); MEAN PLATELET VOLUME 9.6 FL (7.4-10.4); PLATELET COUNT 216 /CUMM (130-400); RBC DISTRIBUTION WIDTH 14.6 % (11.5-14.5); RED BLOOD CELL CT 4.15 /CUMM (4.70-6.10); WHITE BLOOD CELL COUNT 4.2 /CUMM (4.8-10.8)
--- NOTE | 2017-08-07 10:48 | PN- Att Addend ---
Attending Addendum Attending Brief Note Patient seen and examined. Plan of care discussed with the medical team and the patient. Available lab work and radiology test reports were reviewed. Patient is found to be sitting in chair. He currently remains on oxygen. His difficulty breathing has improved. Denies any chest pain fever chills or any nausea or vomiting. Overall he does not appear to be in any distress. Exam: General: Patient awake alert oriented without any distress CVS: S1 plus S2 without any murmur or gallops Chest: Few scattered crepitation without any wheeze. There is no respiratory distress. 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 without any focal neuro deficit and follows commands appropriately Extremities: No edema; no clubbing or cyanosis noted Assessment * COPD exacerbation improving gradually * Community acquired pneumonia * Abnormal EKG with PVCs-assessed by cardiology and no cardiac issues were noted ; no evidence of any cardiac ischemia * Hypoxia- at baseline pacing uses when necessary oxygen at home * Hyperkalemia resolved * History of hypertension Plan * Change Solu Medrol to prednisone * Change of antibiotics to Augmentin oral 875 twice a day for 3 more days * Increase ambulation * Taper oxygen * Plan for discharge home tomorrow Current Medications Sig/Naa Start time Last Medication Dose Route Stop Time Status Admin Acetaminophen 650 MG Q6P PRN 08/05 1800 AC PO Albuterol Sulfate 3 ML TID 08/05 2100 AC 08/07 INH 0741 Albuterol Sulfate 3 ML Q6 PRN 08/05 1815 AC INH Amlodipine Besylate 5 MG DAILY 08/06 0900 AC 08/07 PO 1011 Amoxicillin/ 875 MG Q12 08/07 0952 AC Clavulanate Potassium PO Azithromycin 500 MG DAILY@1630 08/06 1630 DC 08/06 Sodium Chloride 250 ML IV 1630 Budesonide/ 2 PUF BID 08/05 2235 AC 08/07 Formoterol Fumarate INH 1007 Ceftriaxone Sodium 1,000 MG DAILY@1630 08/06 1630 DC 08/06 IV 1630 Citalopram 40 MG DAILY 08/06 0900 AC 08/07 Hydrobromide PO 1007 Guaifenesin 600 MG Q12 08/05 2100 AC 08/07 PO 1007 Guaifenesin/ 10 ML Q6P PRN 08/06 0215 AC 08/06 Dextromethorphan PO 2030 Heparin Sodium 5,000 UNIT Q8 08/05 2199 AC 08/05 (Porcine) SC 2124 Loratadine 10 MG DAILY 08/06 09 AC 08/07 PO 1007 Lorazepam 0 Q1P PRN 08/05 181 AC IV Melatonin 3 MG AT BEDTIME 08/06 0215 AC 08/06 PO 2027 Methylprednisolone 40 MG DAILY 08/08 0900 CAN IV Methylprednisolone 40 MG Q12 08/06 2100 DC 08/06 IV 2028 Metoprolol Succinate 25 MG DAILY 08/06 09 AC 08/07 PO 101 Montelukast Sodium 10 MG DAILY 08/06 0900 AC 08/07 PO 1007 Prednisone 40 MG DAILY 08/07 0951 AC PO Laboratory Tests 08/07/17 0615: Anion Gap 10, Estimated GFR > 60, BUN/Creatinine Ratio 22.9, CBC w Diff NO MAN DIFF REQ, RBC 4.15 L, MCV 91.4, MCH 30.1, MCHC 33.0, RDW 14.6 H, MPV 9.6, Gran % 77.7 H, Lymphocytes % 11.1 L, Monocytes % 11.0 H, Eosinophils % 0, Basophils % 0.2, Absolute Granulocytes 3.2, Absolute Lymphocytes 0.5 L, Absolute Monocytes 0.5, Absolute Eosinophils 0, Absolute Basophils 0 08/06/17 0910: Anion Gap 12, Estimated GFR > 60, BUN/Creatinine Ratio 27.1 H, Magnesium 1.8, Troponin I < 0.01, CBC w Diff NO MAN DIFF REQ, RBC 4.25 L, MCV 90.2, MCH 30.5, MCHC 33.8, RDW 14.3, MPV 9.6, Gran % 80.7 H, Lymphocytes % 12.2 L, Monocytes % 6.5, Eosinophils % 0.1, Basophils % 0.5, Absolute Granulocytes 2.6, Absolute Lymphocytes 0.4 L, Absolute Monocytes 0.2, Absolute Eosinophils 0, Absolute Basophils 0 08/06/17 0900: Urine Color YEL, Urine Clarity HAZY H, Urine pH 6.0, Ur Specific [place] 1.025, Urine Protein NEG, Urine Ketones NEG, Urine Nitrite NEG, Urine Bilirubin NEG, Urine Urobilinogen 0.2, Ur Leukocyte Esterase TRACE H, Ur Microscopic SEDIMENT EXAMINED, Urine RBC RARE, Urine WBC 3-5 H, Ur Epithelial Cells MOD H, Hyaline Casts RARE H, Urine Mucus FEW, Urine Hemoglobin NEG, Urine Glucose 100 H 08/05/17 2225: Anion Gap 11, Estimated GFR > 60, BUN/Creatinine Ratio 27.8 H, Troponin I < 0.01 08/05/17 1506: Anion Gap 12, Estimated GFR > 60, BUN/Creatinine Ratio 28.0 H, Glucose 136 H, Lactic Acid 2.0, Calcium 9.7, Magnesium 2.0, Total Bilirubin 0.6, AST 27, ALT 25 , Alkaline Phosphatase 84, Troponin I < 0.01, Total Protein 7.4, Albumin 3.9, Globulin 3.5, Albumin/Globulin Ratio 1.1, CBC w Diff NO MAN DIFF REQ, RBC 4.71, MCV 90.2, MCH 30.2, MCHC 33.4, RDW 14.8 H, MPV 10.1, Gran % 72.0, Lymphocytes % 11.1 L, Monocytes % 15.9 H, Eosinophils % 0.2, Basophils % 0.8, Absolute Granulocytes 3.4, Absolute Lymphocytes 0.5 L, Absolute Monocytes 0.8 H, Absolute Eosinophils 0, Absolute Basophils 0 Microbiology 08/06 0900 URINE ROUT: Legionella Antigen - COMP 08/06 0900 URINE ROUT: Streptococcus pneumoniae Antigen (M - COMP 08/05 2256 LOWER RESP: Respiratory Culture - RES 08/05 2256 LOWER RESP: Gram Stain - RES 08/05 1615 BLOOD: Blood Culture - RES 08/05 1605 BLOOD: Blood Culture - RES 08/05 1600 NASOPHARYN: Influenza Virus A & B Rapid Smear - COMP Vital Signs Date Time Temp Pulse Resp B/P B/P Pulse O2 O2 Flow FiO2 Mean Ox Delivery Rate 08/07 1011 97 122/80 08/07 1011 97 122/80 08/07 0800 95 Nasal 2.0L Cannula 08/07 0742 95 Nasal 2.0L Cannula 08/07 0712 98.0 82 20 162/94 99 08/068 97.6 91 18 124/76 96 Nasal 2.0L Cannula 08/06 2232 Nasal 2.0L Cannula 08/06 2017 95 Nasal 2.0L Cannula 08/06 1800 97.9 106 18 122/70 08/06 1600 97.9 88 16 122/70 08/06 1402 97.9 86 20 122/ 95 Nasal Cannula 08/06 1400 97.9 86 20 122/70 08/06 1200 98.2 92 18 128/78 Intake & Output 08/07 1600 08/07 0800 08/07 0000 Intake Total 300 870 Output Total Balance 300 870 Intake, IV 280 Intake, Oral 300 590 Patient 144 lb Weight Weight Bed scale Measurement Method
--- NOTE | 2017-08-07 11:13 | PN- Cardiology ---
Subjective Subjective: Patient feels he is improving. Objective Vital Signs and I&Os Vital Signs Date Time Temp Pulse Resp B/P B/P Pulse O2 O2 Flow FiO2 Mean Ox Delivery Rate 08/07 1011 97 122/80 08/07 1011 97 122/80 08/07 0800 95 Nasal 2.0L Cannula 08/07 0742 95 Nasal 2.0L Cannula 08/07 0712 98.0 82 20 162/94 99 08/06 2237 97.6 91 18 124/76 96 Nasal 2.0L Cannula 08/06 2232 Nasal 2.0L Cannula 08/06 2017 95 Nasal 2.0L Cannula 08/06 1800 97.9 106 18 122/70 08/06 1600 97.9 88 16 122/70 08/06 1402 97.9 86 20 122/70 95 Nasal Cannula 08/06 1400 97.9 86 20 122/70 08/06 1200 98.2 92 18 128/78 Intake & Output 08/07 1600 08/07 0800 08/07 0000 08/06 1600 08/06 0800 08/06 0000 Intake Total 128 631 7690.5 1400 955 Output Total Balance 870 334 8216.5 1400 955 Intake, IV 280 707.5 1200 475 Intake, Oral 300 590 520 200 480 Number 1 Bowel Movements Patient 144 lb 155 lb Weight Weight Bed scale Reported by Patient Measurement Method Physical Exam: General: no apparent distress. Alert. Eyes: No obvious scleral icterus. HEENT: No jugular venous distention or abnormal jugular venous pulsations. Cardiovascular: Normal intensity S1/S2. Regular Respiratory: Scattered bilateral wheezes Abdomen: Soft, nontender with no guarding or rebound tenderness. Musculoskeletal: No clubbing or cyanosis noted Skin: Warm Neurologic: No gross focal deficits noted. Current Medications: Current Medications Sig/Ana Start time Last Medication Dose Route Stop Time Status Admin Acetaminophen 650 MG Q6P PRN 08/05 1800 AC PO Albuterol Sulfate 3 ML TID 08/05 2100 AC 08/07 INH 0741 Albuterol Sulfate 3 ML Q6 PRN 08/05 1815 AC INH Amlodipine Besylate 5 MG DAILY 08/06 0900 AC 08/07 PO 1011 Amoxicillin/ 875 MG Q12 08/07 0952 AC Clavulanate Potassium PO Azithromycin 500 MG DAILY@1630 08/06 1630 DC 08/06 Sodium Chloride 250 ML IV 1630 Budesonide/ 2 PUF BID 08/05 2235 AC 08/07 Formoterol Fumarate INH 1007 Ceftriaxone Sodium 1,000 MG DAILY@1630 08/06 1630 DC 08/06 IV 1630 Citalopram 40 MG DAILY 08/06 0900 AC 08/07 Hydrobromide PO 1007 Guaifenesin 600 MG Q12 08/05 2100 AC 08/07 PO 1007 Guaifenesin/ 10 ML Q6P PRN 08/06 0215 AC 08/06 Dextromethorphan PO 2030 Heparin Sodium 5,000 UNIT Q8 08/05 2200 AC 08/05 (Porcine) SC 212 Loratadine 10 MG DAILY 08/06 0900 AC 08/07 PO 1007 Lorazepam 0 Q1P PRN 08/05 1815 AC IV Melatonin 3 MG AT BEDTIME 08/06 021 AC 08/06 PO 2028 Methylprednisolone 40 MG DAILY 08/08 0900 CAN IV Methylprednisolone 40 MG Q12 08/06 2100 DC 08/06 IV 202 Metoprolol Succinate 25 MG DAILY 08/06 0900 AC 08/07 PO 1011 Montelukast Sodium 10 MG DAILY 08/06 0900 AC 08/07 PO 1007 Prednisone 40 MG DAILY 08/07 0951 AC PO Results Last 48 Hrs of Labs/Mics: Laboratory Tests 08/07/17 0615: Anion Gap 10, Estimated GFR > 60, BUN/Creatinine Ratio 22.9, CBC w Diff NO MAN DIFF REQ, RBC 4.15 L, MCV 91.4, MCH 30.1, MCHC 33.0, RDW 14.6 H, MPV 9.6, Gran % 77.7 H, Lymphocytes % 11.1 L, Monocytes % 11.0 H, Eosinophils % 0, Basophils % 0.2, Absolute Granulocytes 3.2, Absolute Lymphocytes 0.5 L, Absolute Monocytes 0.5, Absolute Eosinophils 0, Absolute Basophils 0 08/06/17 0910: Anion Gap 12, Estimated GFR > 60, BUN/Creatinine Ratio 27.1 H, Magnesium 1.8, Troponin I < 0.01, CBC w Diff NO MAN DIFF REQ, RBC 4.25 L, MCV 90.2, MCH 30.5, MCHC 33.8, RDW 14.3, MPV 9.6, Gran % 80.7 H, Lymphocytes % 12.2 L, Monocytes % 6.5, Eosinophils % 0.1, Basophils % 0.5, Absolute Granulocytes 2.6, Absolute Lymphocytes 0.4 L, Absolute Monocytes 0.2, Absolute Eosinophils 0, Absolute Basophils 0 08/06/17 0900: Urine Color YEL, Urine Clarity HAZY H, Urine pH 6.0, Ur Specific [place] 1.025, Urine Protein NEG, Urine Ketones NEG, Urine Nitrite NEG, Urine Bilirubin NEG, Urine Urobilinogen 0.2, Ur Leukocyte Esterase TRACE H, Ur Microscopic SEDIMENT EXAMINED, Urine RBC RARE, Urine WBC 3-5 H, Ur Epithelial Cells MOD H, Hyaline Casts RARE H, Urine Mucus FEW, Urine Hemoglobin NEG, Urine Glucose 100 H 08/05/17 2225: Anion Gap 11, Estimated GFR > 60, BUN/Creatinine Ratio 27.8 H, Troponin I < 0.01 08/05/17 1506: Anion Gap 12, Estimated GFR > 60, BUN/Creatinine Ratio 28.0 H, Glucose 136 H, Lactic Acid 2.0, Calcium 9.7, Magnesium 2.0, Total Bilirubin 0.6, AST 27, ALT 25 , Alkaline Phosphatase 84, Troponin I < 0.01, Total Protein 7.4, Albumin 3.9, Globulin 3.5, Albumin/Globulin Ratio 1.1, CBC w Diff NO MAN DIFF REQ, RBC 4.71, MCV 90.2, MCH 30.2, MCHC 33.4, RDW 14.8 H, MPV 10.1, Gran % 72.0, Lymphocytes % 11.1 L, Monocytes % 15.9 H, Eosinophils % 0.2, Basophils % 0.8, Absolute Granulocytes 3.4, Absolute Lymphocytes 0.5 L, Absolute Monocytes 0.8 H, Absolute Eosinophils 0, Absolute Basophils 0 Microbiology 08/06 09 URINE ROUT: Legionella Antigen - COMP 08/06 09 URINE ROUT: Streptococcus pneumoniae Antigen (M - COMP 08/05 1600 NASOPHARYN: Influenza Virus A & B Rapid Smear - COMP Recent Imaging Studies: Telemetry tracings are personally reviewed and shows sinus rhythm Assessment/Plan Assessment/Plan 1. COPD/pneumonia 2. Previous episodes of recurrent syncope with loop recorder in place 3. History of asymptomatic NSVT on beta-huang 4. History of hypertension 5. History of small membranous VSD The patient feels he is clinically improving. No sustained arrhythmias noted on telemetry. It appears an echocardiogram was ordered which is pending. Antibiotic regimen per the medical team. Will resume regular outpatient loop recorder checks after discharge. Chidi Krishnamurthy MD [facility] Continue telemetry? No
[2017-08-07 14:33] VITALS: BP 132/86
[2017-08-07] MEDS ORDERED: PREDNISONE20 M1 PO (18:41)
[2017-08-07] MEDS ORDERED: AMOX-CLAV 875-1 EACH PO (18:41)
--- NOTE | 2017-08-07 18:45 | Patient Discharge Instructions ---
Discharge Instructions General Discharge Information You were seen/treated for: COPD exacerbation Pneumonia Special Instructions: Follow-up with your primary care physician within 1 week of discharge. 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 Follow-up with Dr. Dalton to establish pulmonary care for COPD, and follow-up with the [place] [facility]. Take all medications as directed. Call your doctor or return to the ER if you have severe shortness of breath, chest pain, lightheadedness or loss of consciousness. Acute Coronary Syndrome Inclusion Criteria At DC or during hospital stay patient has or had the following: ACS DIAGNOSIS No Discharge Core Measures Meds if any: Prescribed or Continued at Discharge Meds if any: NOT Prescribed or Continued at Discharge Congestive Heart Failure Inclusion Criteria At DC or during hospital stay patient has or had the following: CHF DIAGNOSIS No Discharge Core Measures Meds if any: Prescribed or Continued at Discharge Meds if any: NOT Prescribed or Continued at Discharge Cerebrovascular accident Inclusion Criteria At DC or during hospital stay patient has or had the following: CVA/TIA Diagnosis No Discharge Core Measures Meds if any: Prescribed or Continued at Discharge Meds if any: NOT Prescribed or Continued at Discharge Venous thromboembolism Inclusion Criteria VTE Diagnosis No VTE Type NONE VTE Confirmed by (Test) NONE Discharge Core Measures - Per Current guidelines, there needs to be overlap - treatment for the first 5 days of Warfarin therapy. - If discharged on Warfarin prior to 5 days of - overlap therapy, the patient will need to be - assessed for post discharge needs including - *Post discharge parental anticoagulation - *Warfarin and/or parental anticoagulation education - *Follow up date to check INR post discharge At least 5 days overlap therapy as Inpatient No Meds if any: Prescribed or Continued at Discharge Note: Overlap Therapy is Warfarin and Anticoagulant Meds if any: NOT Prescribed or Continued at Discharge
[2017-08-07 22:37] VITALS: BP 140/70
[2017-08-08 06:54] VITALS: BP 170/100
--- NOTE | 2017-08-08 07:18 | PN- Housestaff ---
Subjective Follow-up For: CAP COPD exacerbation Tele-Events Since Last Visit: off of tele Subjective: Patient was seen and examined at bedside. He is resting comfortably. He had no acute events overnight. He reports that his cough still persists but is improving. He denies any fevers, chills, chest pain, shortness of breath, nausea, vomiting. He is secondary to being discharged today. Review of Systems Constitutional: Denies: chills, fever, weakness. EENTM: Reports: no symptoms. Cardiovascular: Reports: no symptoms. Respiratory: Reports: cough, sputum production. Denies: short of breath. Gastrointestinal: Reports: no symptoms. Genitourinary: Reports: no symptoms. Musculoskeletal: Reports: no symptoms. Objective Last 24 Hrs of Vital Signs/I&O Vital Signs Date Time Temp Pulse Resp B/P B/P Pulse O2 O2 Flow FiO2 Mean Ox Delivery Rate 08/08 0654 98.0 79 20 170/100 98 Nasal 1.0L Cannula 08/08 0632 79 170/102 08/07 2237 97.8 85 20 140/70 97 08/07 2231 Nasal 2.0L Cannula 08/07 1910 97 Nasal 1.0L Cannula 08/07 1433 98.2 88 18 132/86 97 Nasal 1.0L Cannula 08/07 1111 95 Nasal 1.0L Cannula 08/07 1011 97 122/80 08/07 1011 97 122/80 08/07 0800 95 Nasal 2.0L Cannula 08/07 0742 95 Nasal 2.0L Cannula Intake & Output 08/08 0800 08/08 0000 08/07 1600 Intake Total 360 350 550 Output Total Balance 360 350 550 Intake, Oral 360 350 550 Patient 145 lb Weight Physical Exam General Appearance: Alert, Oriented X3, Cooperative, No Acute Distress Skin Temp/Moisture Exam: Warm/Dry Cardiovascular: Regular Rate, Normal S1, Normal S2 Lungs: scant rhonchi Abdomen: Normal Bowel Sounds, Soft, No Tenderness Neurological: Normal Speech Extremities: No Clubbing, No Cyanosis, No Edema Current Medications: Current Medications Sig/Ana Start time Last Medication Dose Route Stop Time Status Admin Acetaminophen 650 MG Q6P PRN 08/05 1800 AC PO Albuterol Sulfate 3 ML TID 08/05 2100 AC 08/07 INH 1909 Albuterol Sulfate 3 ML Q6 PRN 08/05 1815 AC INH Amlodipine Besylate 5 MG DAILY 08/06 0900 AC 08/08 PO 0632 Amoxicillin/ 875 MG Q12 08/07 0952 AC 08/07 Clavulanate Potassium PO 211 Azithromycin 500 MG DAILY@1630 08/06 1630 DC 08/06 Sodium Chloride 250 ML IV 1630 Budesonide/ 2 PUF BID 08/05 2235 AC 08/07 Formoterol Fumarate INH 211 Ceftriaxone Sodium 1,000 MG DAILY@1630 08/06 1630 DC 08/06 IV 1630 Citalopram 40 MG DAILY 08/06 0900 AC 08/07 Hydrobromide PO 1007 Guaifenesin 600 MG Q12 08/05 2100 AC 08/07 PO 2115 Guaifenesin/ 10 ML Q6P PRN 08/06 0215 AC 08/07 Dextromethorphan PO 211 Heparin Sodium 5,000 UNIT Q8 08/05 2200 AC 08/05 (Porcine) SC 5 Loratadine 10 MG DAILY 08/06 0900 AC 08/07 PO 1007 Lorazepam 0 Q1P PRN 08/05 1815 AC IV Melatonin 3 MG AT BEDTIME 08/06 0215 AC 08/07 PO 2115 Methylprednisolone 40 MG DAILY 08/08 0900 CAN IV Methylprednisolone 40 MG Q12 08/06 2100 DC 08/06 IV 2029 Metoprolol Succinate 25 MG DAILY 08/06 0900 AC 08/07 PO 1011 Montelukast Sodium 10 MG DAILY 08/06 0900 AC 08/07 PO 1007 Patient Medication 1 ED ONE ONE 08/07 1715 PR Teaching ED 08/07 1716 Prednisone 40 MG DAILY 08/07 0951 08/07 PO 1125 Assessment/Plan Assessment: 76-year-old man with multiple medical problems seen for evaluation of progressively worsening productive cough. He was reportedly hypoxic to 87% on room air in triage. Chest x-ray demonstrates a bilateral lower lobe pneumonia. Notably, pt reports drinking up to 1 pint of liquor per day with his last drink being 3-4 days ago. Given his radiologic findings and presentation, pt is treated for COPD superimposed by PNA (CAP vs aspiraton given hx EtOH). Community-acquired pneumonia: WBC improved to 4.2 today. Pt remaines afebrile but on steroids. We'll continue to monitor CBC * Augmentin 875 twice a day for 2 more days * Blood/sputum cultures showing no growth so far * Strep/Legionella antigens negative * patient is stable for discharge today COPD exacerbation AND Acute hypoxic respiratory failure * TRC with scheduled nebs * Supplemental oxygen, goal>92%, and he needs to taper * Switched to 40 mg prednisone, will discharge on prednisone * Guaifenacin * Loratadine * Singulair * Symbicort * Albuterol New T wave inversions * Cleared by cardiology to discontinue telemetry monitoring * 3 negative sets troponin * Follow-up echocardiogram * Appreciate cardiology consult for new T-wave inversions Hypokalemia: Today 4.2 * Continue to monitor BEP daily for potassium Hypertension: 1 elevated reading overnight, otherwise normotensive * Norvasc 5mg daily Depression * Celexa History of EtOH abuse * CIWA, patient's CIWAs have been 0s and has not required any Ativan Hyponatremia: Sodium 135 today. * Con't monitor -Heart healthy diet -DVT prophylaxis with subcutaneous heparin and ALPS -Full code Problem List: 1. Pneumonia 2. COPD exacerbation Pain Ratin Pain Location: none Pain Goal: Remain pain free Pain Plan: pain pathway Tomorrow's Labs & Rationales: none
[2017-08-08] MEDS ORDERED: AMOX-CLAV 875-1 EACH PO ×2 (07:19→11:00)
[2017-08-08 08:00] VITALS: BP 170/100
[2017-08-08 08:02] LABS: ABSOLUTE BASOPHIL COUNT 0 /CUMM (0.0-0.2); ABSOLUTE EOSINOPHIL COUNT 0 /CUMM (0.0-0.7); ABSOLUTE GRANULOCYTE CT 3.3 /CUMM (1.4-6.5); ABSOLUTE LYMPH COUNT 1.2 /CUMM (1.2-3.4); ABSOLUTE MONOCYTE COUNT 0.7 /CUMM (0.10-0.60); BASOPHIL % 0.3 % (0.0-2.0); EOSINOPHIL % 0.6 % (0-5); GRANULOCYTE % 63.2 % (42.2-75.2); HEMATOCRIT 38.3 % (42-52); MEAN CORPUSCULAR HGB 30.6 PG (27.0-31.0); MEAN CORPUSCULAR HGB CONC 33.3 G/DL (33.0-37.0); MEAN PLATELET VOLUME 9.2 FL (7.4-10.4); PLATELET COUNT 247 /CUMM (130-400); RBC DISTRIBUTION WIDTH 14.8 % (11.5-14.5); RED BLOOD CELL CT 4.17 /CUMM (4.70-6.10); WHITE BLOOD CELL COUNT 5.2 /CUMM (4.8-10.8)
[2017-08-08 08:35] VITALS: BP 110/72
[2017-08-08] MEDS ORDERED: ALBUTEROL0.63 MG/1 INH/SOL ×2 (09:47→11:00)
[2017-08-08] MEDS ORDERED: GUAIFENESIN DM S5 ML PO ×2 (09:48→11:00)
--- NOTE | 2017-08-08 09:53 | PN- Cardiology ---
Subjective Subjective: Patient states he feels much better although continues to have mild shortness of breath with wheezing. Review of Systems: Eyes no blurred or double vision Ears no deafness or ringing Nose and throat no recurrent sinusitis Lungs per history of present illness Heart per history of present illness Abdomen no nausea vomiting Musculoskeletal occasional muscle and joint pains Psych no anxiety or depression Neuro without recurrent headache or seizures Endocrine no heat or cold intolerance Objective Vital Signs and I&Os Vital Signs Date Time Temp Pulse Resp B/P B/P Pulse O2 O2 Flow FiO2 Mean Ox Delivery Rate 08/08 0837 79 110/72 08/08 0835 110/72 08/08 0800 Room Air 08/08 0736 97 Nasal 1.0L Cannula 08/08 0654 98.0 79 20 170/100 98 Nasal 1.0L Cannula 08/08 0632 79 170/102 08/07 2237 97.8 85 20 140/70 97 08/07 2231 Nasal 2.0L Cannula 08/07 1910 97 Nasal 1.0L Cannula 08/07 1433 98.2 88 18 132/86 97 Nasal 1.0L Cannula 08/07 1111 95 Nasal 1.0L Cannula 08/07 1011 97 122/80 08/07 1011 97 122/80 Intake & Output 08/08 1600 08/08 0800 08/08 0000 08/07 1600 08/07 0800 08/07 0000 Intake Total 360 350 550 300 870 Output Total Balance 360 350 550 300 870 Intake, IV 280 Intake, Oral 360 350 550 300 590 Patient 145 lb 144 lb Weight Weight Bed scale Measurement Method Physical Exam: Patient is a well-developed well-nourished male appearing in no acute distress HEENT is unremarkable Neck is supple there is no JVD Lungs inspiratory wheezes and rhonchi bilaterally Heart regular rhythm S1 and S2 are normal no murmurs gallops or rubs Abdomen bowel sounds positive Extremities without edema Current Medications: Current Medications Sig/Ana Start time Last Medication Dose Route Stop Time Status Admin Acetaminophen 650 MG Q6P PRN 08/05 1800 AC PO Albuterol Sulfate 3 ML TID 08/05 2100 AC 08/08 INH 0734 Albuterol Sulfate 3 ML Q6 PRN 08/05 1815 AC INH Amlodipine Besylate 5 MG DAILY 08/06 09 AC 08/08 PO 0632 Amoxicillin/ 875 MG Q12 08/07 0952 AC 08/08 Clavulanate Potassium PO 0837 Azithromycin 500 MG DAILY@1630 08/06 1630 DC 08/06 Sodium Chloride 250 ML IV 1630 Budesonide/ 2 PUF BID 08/05 2235 AC 08/08 Formoterol Fumarate INH 0837 Ceftriaxone Sodium 1,000 MG DAILY@1630 08/06 1630 DC 08/06 IV 1630 Citalopram 40 MG DAILY 08/06 0900 AC 08/08 Hydrobromide PO 0837 Guaifenesin 600 MG Q12 08/05 2100 AC 08/08 PO 0837 Guaifenesin/ 10 ML Q6P PRN 08/06 0215 AC 08/07 Dextromethorphan PO 211 Heparin Sodium 5,000 UNIT Q8 08/050 AC 08/05 (Porcine) SC 2124 Loratadine 10 MG DAILY 08/06 0900 AC 08/08 PO 0837 Lorazepam 0 Q1P PRN 08/05 1815 AC IV Melatonin 3 MG AT BEDTIME 08/06 021 AC 08/07 PO 2115 Methylprednisolone 40 MG DAILY 08/08 0900 CAN IV Metoprolol Succinate 25 MG DAILY 08/06 0900 AC 08/08 PO 0837 Montelukast Sodium 10 MG DAILY 08/06 0900 AC 08/08 PO 0837 Patient Medication 1 ED ONE ONE 08/07 1715 DC Teaching ED 08/07 171 Prednisone 40 MG DAILY 08/07 0951 AC 08/08 PO 0837 Results Last 48 Hrs of Labs/Mics: Laboratory Tests 08/08/17 0700: Anion Gap 6, Estimated GFR > 60, BUN/Creatinine Ratio 17.5, CBC w Diff NO MAN DIFF REQ, RBC 4.17 L, MCV 92.0, MCH 30.6, MCHC 33.3, RDW 14.8 H, MPV 9.2, Gran % 63.2, Lymphocytes % 23.2, Monocytes % 12.7 H, Eosinophils % 0.6, Basophils % 0.3, Absolute Granulocytes 3.3, Absolute Lymphocytes 1.2, Absolute Monocytes 0.7 H, Absolute Eosinophils 0, Absolute Basophils 0 08/07/17 0615: Anion Gap 10, Estimated GFR > 60, BUN/Creatinine Ratio 22.9, CBC w Diff NO MAN DIFF REQ, RBC 4.15 L, MCV 91.4, MCH 30.1, MCHC 33.0, RDW 14.6 H, MPV 9.6, Gran % 77.7 H, Lymphocytes % 11.1 L, Monocytes % 11.0 H, Eosinophils % 0, Basophils % 0.2, Absolute Granulocytes 3.2, Absolute Lymphocytes 0.5 L, Absolute Monocytes 0.5, Absolute Eosinophils 0, Absolute Basophils 0 Assessment/Plan Assessment/Plan 1. COPD/pneumonia 2. Previous episodes of recurrent syncope with loop recorder in place 3. History of asymptomatic NSVT on beta-huang 4. History of hypertension 5. History of small membranous VSD Recommendations 1. Continue current medications 2. Echocardiogram is pending 3. Stressed importance of incentive spirometer Continue telemetry? No
[2017-08-08] MEDS ORDERED: METOPROLOL TART25 M1 PO (09:56)
[2017-08-08 10:00] VITALS: BP 110/72
[2017-08-08] MEDS ORDERED: PREDNISONE20 M1 PO (11:00)
--- NOTE | 2017-08-08 11:54 | PN- Att Addend ---
Attending Addendum Attending Brief Note Patient seen and examined. Plan of care discussed with the medical team and the patient. Available lab work and radiology test reports were reviewed. Patient doing very well. He has been ambulate in hallway without oxygen and denies any difficulty breathing. Overall he does not appear to be in any distress. Exam: General: Patient awake alert oriented without any distress CVS: S1 plus S2 without any murmur or gallops Chest: Few scattered crepitation without any wheeze. There is no respiratory distress. 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: Awake alert oriented without any focal neuro deficit and follows commands appropriately Extremities: No edema; no clubbing or cyanosis noted Assessment * COPD exacerbation improving * Community acquired pneumonia * Abnormal EKG with PVCs-assessed by cardiology and no cardiac issues were noted ; no evidence of any cardiac ischemia * Hypoxia- at baseline * Hyperkalemia resolved * History of hypertension Plan * Continue prednisone taper * Continue Augmentin oral 875 twice a day for 2 more days * Plan for discharge home today Current Medications Sig/Ana Start time Last Medication Dose Route Stop Time Status Admin Acetaminophen 650 MG Q6P PRN 08/05 1800 AC PO Albuterol Sulfate 3 ML TID 08/05 2100 AC 08/08 INH 0734 Albuterol Sulfate 3 ML Q6 PRN 08/05 1815 AC INH Amlodipine Besylate 5 MG DAILY 08/06 09 AC 08/08 PO 0632 Amoxicillin/ 875 MG Q12 08/07 0952 AC 08/08 Clavulanate Potassium PO 0837 Budesonide/ 2 PUF BID 08/05 2235 AC 08/08 Formoterol Fumarate INH 0837 Citalopram 40 MG DAILY 08/06 09 AC 08/08 Hydrobromide PO 0837 Guaifenesin 600 MG Q12 08/05 2100 AC 08/08 PO 0837 Guaifenesin/ 10 ML Q6P PRN 08/06 021 AC 08/07 Dextromethorphan PO 2115 Heparin Sodium 5,000 UNIT Q8 08/05 2200 AC 08/05 (Porcine) SC 2124 Loratadine 10 MG DAILY 08/06 0900 AC 08/08 PO 0837 Lorazepam 0 Q1P PRN 08/05 1815 AC IV Melatonin 3 MG AT BEDTIME 08/06 0215 AC 08/07 PO 211 Metoprolol Succinate 25 MG DAILY 08/06 899 08/08 PO 0837 Montelukast Sodium 10 MG DAILY 08/06 09 AC 08/08 PO 0837 Patient Medication 1 ED ONE ONE 08/07 1715 [facility] ED 08/08 1715 Prednisone 40 MG DAILY 08/07 950 08/08 PO 0837 Laboratory Tests 08/08/17 0700: Anion Gap 6, Estimated GFR > 60, BUN/Creatinine Ratio 17.5, CBC w Diff NO MAN DIFF REQ, RBC 4.17 L, MCV 92.0, MCH 30.6, MCHC 33.3, RDW 14.8 H, MPV 9.2, Gran % 63.2, Lymphocytes % 23.2, Monocytes % 12.7 H, Eosinophils % 0.6, Basophils % 0.3, Absolute Granulocytes 3.3, Absolute Lymphocytes 1.2, Absolute Monocytes 0.7 H, Absolute Eosinophils 0, Absolute Basophils 0 08/07/17 0615: Anion Gap 10, Estimated GFR > 60, BUN/Creatinine Ratio 22.9, CBC w Diff NO MAN DIFF REQ, RBC 4.15 L, MCV 91.4, MCH 30.1, MCHC 33.0, RDW 14.6 H, MPV 9.6, Gran % 77.7 H, Lymphocytes % 11.1 L, Monocytes % 11.0 H, Eosinophils % 0, Basophils % 0.2, Absolute Granulocytes 3.2, Absolute Lymphocytes 0.5 L, Absolute Monocytes 0.5, Absolute Eosinophils 0, Absolute Basophils 0 08/06/17 0910: Anion Gap 12, Estimated GFR > 60, BUN/Creatinine Ratio 27.1 H, Magnesium 1.8, Troponin I < 0.01, CBC w Diff NO MAN DIFF REQ, RBC 4.25 L, MCV 90.2, MCH 30.5, MCHC 33.8, RDW 14.3, MPV 9.6, Gran % 80.7 H, Lymphocytes % 12.2 L, Monocytes % 6.5, Eosinophils % 0.1, Basophils % 0.5, Absolute Granulocytes 2.6, Absolute Lymphocytes 0.4 L, Absolute Monocytes 0.2, Absolute Eosinophils 0, Absolute Basophils 0 08/06/17 0900: Urine Color YEL, Urine Clarity HAZY H, Urine pH 6.0, Ur Specific [place] 1.025, Urine Protein NEG, Urine Ketones NEG, Urine Nitrite NEG, Urine Bilirubin NEG, Urine Urobilinogen 0.2, Ur Leukocyte Esterase TRACE H, Ur Microscopic SEDIMENT EXAMINED, Urine RBC RARE, Urine WBC 3-5 H, Ur Epithelial Cells MOD H, Hyaline Casts RARE H, Urine Mucus FEW, Urine Hemoglobin NEG, Urine Glucose 100 H 08/05/17 2225: Anion Gap 11, Estimated GFR > 60, BUN/Creatinine Ratio 27.8 H, Troponin I < 0.01 08/05/17 1506: Anion Gap 12, Estimated GFR > 60, BUN/Creatinine Ratio 28.0 H, Glucose 136 H, Lactic Acid 2.0, Calcium 9.7, Magnesium 2.0, Total Bilirubin 0.6, AST 27, ALT 25 , Alkaline Phosphatase 84, Troponin I < 0.01, Total Protein 7.4, Albumin 3.9, Globulin 3.5, Albumin/Globulin Ratio 1.1, CBC w Diff NO MAN DIFF REQ, RBC 4.71, MCV 90.2, MCH 30.2, MCHC 33.4, RDW 14.8 H, MPV 10.1, Gran % 72.0, Lymphocytes % 11.1 L, Monocytes % 15.9 H, Eosinophils % 0.2, Basophils % 0.8, Absolute Granulocytes 3.4, Absolute Lymphocytes 0.5 L, Absolute Monocytes 0.8 H, Absolute Eosinophils 0, Absolute Basophils 0 Microbiology 08/06 899 URINE ROUT: Legionella Antigen - COMP 08/06 899 URINE ROUT: Streptococcus pneumoniae Antigen (M - COMP 08/05 2256 LOWER RESP: Respiratory Culture - RES 08/05 2256 LOWER RESP: Gram Stain - RES 08/05 1615 BLOOD: Blood Culture - RES 08/05 1605 BLOOD: Blood Culture - RES 08/05 1600 NASOPHARYN: Influenza Virus A & B Rapid Smear - COMP Vital Signs Date Time Temp Pulse Resp B/P B/P Pulse O2 O2 Flow FiO2 Mean Ox Delivery Rate 08/08 1000 98.0 79 18 110/72 08/08 0837 79 110/72 08/08 0835 110/72 08/08 0800 Room Air 08/08 0800 98.0 79 20 170/100 08/08 0736 97 Nasal 1.0L Cannula 08/08 0654 98.0 79 20 170/100 98 Nasal 1.0L Cannula 08/08 0632 79 170/102 08/077 97.8 85 20 140/70 97 08/07 2231 Nasal 2.0L Cannula 08/07 1910 97 Nasal 1.0L Cannula 08/07 1433 98.2 88 18 132/86 97 Nasal 1.0L Cannula Intake & Output 08/08 1600 08/08 0800 08/08 0000 Intake Total 360 350 Output Total Balance 360 350 Intake, Oral 360 350 Patient 145 lb Weight Total time spent in preparation for discharge plan, patient education, and CMR preparation was 35 minutes.
--- NOTE | 2017-08-08 13:08 | Discharge Summary ---
Visit Information Visit Dates Admission Date: 08/05/17 Discharge Date: 08/08/17 Hospital Course Course Attending Physician: Hay Pyle MD Primary Care Physician: Anival Jaime APRN Consulting Request: Consulting Specialty: Cardiology Hospital Course: Patient is a 76-year-old male with PMH significant COPD not following with a embedded systems software engineer and not a steroid or oxygen-dependent, asthma, GERD, abuse, HTN, HLD who presented to the [facility] ED complaining of worsening cough. Had been worsening for 3 days, was productive of whitish sputum and he had associated fatigue and dizziness. On admission vital signs: -Temperature: 96.1 -Heart rate: 97 -Respiratory rate: 18 -Systolic BP: 130 -Diastolic BP: 81 -O2 sat: 89-92% on 1 L O2 via nasal cannula On admission labs and imaging: -CBC: WBC 4.8, hemoglobin 14.2, hematocrit 42.5, platelet 190 -BMP: Sodium 135, potassium 2.9, chloride 93, CO2 30, urea 28, creatinine 1.0, anion gap 12, glucose 136 -LFT: Within normal limits -Miscellaneous: Troponin I <0.01, lactic acid 2.0 -CXR: Bilateral lower lobe pneumonia -EKG: Normal sinus rhythm with new T-wave inversions in V1-V3 -Echocardiogram 2015: LVEF 60-65% with stage I diastolic dysfunction, RV pressure 25 mmHg Patient was admitted to the telemetry floor for treatment of following problems: #community-acquired pneumonia Patient was saturating 89% on room air in the ED. He was placed on supplemental O2. Chest x-ray showed evidence of pneumonia. He was started on IV azithromycin and ceftriaxone. On day 2 of hospitalization patient became leukopenic with WBC 3.2. Patient remained afebrile although was on steroids throughout his admission, he reported chills and diaphoresis prior to admission. Antibiotic was converted to by mouth Augmentin and he was discharged with a prescription to complete a total of a 5 day course of antibiotics. #COPD/asthma exacerbation Patient does not follow with a embedded systems software engineer and does not carry a formal diagnosis of COPD however he does have a history of smoking and was wheezing with decreased air movement on presentation. He was started on IV steroids given total respiratory care nebulizations as needed. He is able to be weaned off of supplemental O2 and was sent home on a rapid prednisone taper with instructions to follow-up with Dr. Dalton, pulmonology and the [facility]. #EKG changes ACS was ruled out with serial troponins which were negative and EKGs which showed no significant signs of ischemia. Cardiology was consulted who cleared the patient was discharged with follow-up as an outpatient for regular loop recorder checks. #Alcohol use disorder Patient reports drinking heavily between 1/2-1 pint of vodka a day, his last drink was 4 days prior to admission. He was monitored for signs of withdrawal on a CIWA protocol. His CIWA scores were 0 throughout the admission did not require IV Ativan although was available as needed. #Hypokalemia On presentation patient's potassium was 2.9, was repleted and monitored closely throughout the admission and improved to 3.7 by discharge. #Hypertension Patient was maintained on home dose of amlodipine. She was given a heart healthy diet. DVT prophylaxis was addressed with subcutaneous heparin and mechanical VTE prophylaxis. Allergies: Coded Allergies: aspirin (Mild, GI UPSET 11/14/16) Significant Procedures: CXR FINDINGS: There is a small region of parenchymal disease seen in the mid right lung on PA film and on lateral film appears to lie within the superior segment of the right lower lobe. There is also a region of disease seen in the left lower lobe. Heart normal size. No evidence of pulmonary edema. No pneumothorax or pleural effusion. Percutaneous pacemaker seen in place. IMPRESSION: Regions of disease within the superior segment right lower lobe and left lower lobe consistent with pneumonia. Disposition Summary Disposition Principal Diagnosis: community acquired pneumonia Additional Diagnosis: CODP exacerbation, acute hypoxic respiratory failure, hypokalemia, alcohol use disorder, HTN Discharge Disposition: home health services Discharge Instructions General Discharge Information Code Status: Full Code Patient's Diet: Heary Healthy Patient's Activity: As tolerated Follow-Up Instructions/Appts: Follow-up with primary care physician within 1 week of discharge. Follow-up with cardiology within 1 week of discahrge. Follow-up with Dr. Dalton to establish pulmonary care for COPD, and follow-up with the [facility]. Medications at Discharge Discharge Medications: Stop taking the following medications: Metoprolol Tartrate (Metoprolol Tartrate) 25 MG TABLET ORAL DAILY Qty = 30 Continue taking these medications: Citalopram Hydrobromide (Citalopram HBr) 40 MG TABLET 1 Tablet ORAL DAILY Qty = 90 Comments: Last Taken: 08/08/17 Time: 9 AM Hydrochlorothiazide (Hydrochlorothiazide) 25 MG TABLET 1 Tablet ORAL DAILY Qty = 90 Comments: NOT GIVEN IN HOSPITAL Fluticasone Propionate (Fluticasone Propionate) 50 MCG/ACTUATION SPRAY.SUSP 2 [place] Both sides of nose DAILY Qty = 16 Comments: NOT GIVEN IN HOSPITAL Albuterol Sulfate (Ventolin Hfa) 90 MCG HFA.AER.AD 1-2 Puff Inhale through mouth Q4H as needed for ASTHMA Qty = 18 Comments: NOT GIVEN IN HOSPITAL Budesonide/Formoterol Fumarate (Symbicort 160-4.5 Mcg Inhaler) 160 MCG-4.5 MCG/ ACTUATION HFA.AER.AD 2 Puff Inhale through mouth TWICE DAILY Qty = 10 Comments: Last Taken: 08/08/17 Time: 9 AM Amlodipine Besylate (Amlodipine Besylate) 5 MG TABLET 1 Tablet ORAL DAILY Qty = 90 Comments: Last Taken: 08/08/17 Time: 6:30AM Montelukast Sodium (Montelukast Sodium) 10 MG TABLET 1 Tablet ORAL DAILY Qty = 90 Comments: Last Taken: 08/08/17 Time: 9 AM Cetirizine HCl (Cetirizine HCl) 10 MG TABLET 1 Tablet ORAL DAILY Qty = 90 Comments: NOT GIVEN IN HOSPITAL Metoprolol Succinate (Metoprolol Succinate) 25 MG TAB 1 Tablet ORAL DAILY Qty = 30 Comments: Last Taken: 08/08/17 Time: 9 AM Start taking the following new medications: Prednisone (Prednisone) 20 MG TABLET 2 Tablet ORAL DAILY Qty = 8 No Refills Instructions: . Comments: Last Taken: 08/08/17 Time: 9 AM Guaifenesin/Dextromethorphan (Guaifenesin Dm Syrup) 100 MG-10 MG/5 ML SYRUP 10 Milliliters ORAL EVERY SIX HOURS NEEDED as needed for COUGH Qty = 1 No Refills Instructions: . Comments: Last Taken: 08/08/17 Time: 9 AM Albuterol Sulfate (Albuterol Sulfate) 0.63 MG/3 ML VIAL.NEB 1 Vial Inhale Solution THREE TIMES A DAY NEEDED as needed for Shorntess of breath Qty = 150 No Refills Instructions: . Comments: Last Taken: 08/08/17 Time: 7AM Amoxicillin/Clavulanate Potass (Amox-Clav 875-125 MG Tablet) 875 MG-125 MG TABLET 875 Milligram ORAL EVERY 12 HOURS Qty = 3 No Refills Instructions: . Comments: Last Taken: 08/08/17 Time: 9 AM Take one tablet after discharge on 08/08 Take twice daily for 2 more days Copies To: Anival Jaime APRN; Yessy GLOVER,Nikos; Sha GLOVER,Riaz
--- NOTE | 2017-08-08 14:04 | ECHOCARDIOGRAM REPORT ---
TYSON FLORES Age: 76 : 1940 Gender: M Exam Date: 08/07/2017 19:18 Exam Location: [address] Ht (in): 66 Wt (lb): 150 BSA: 1.79 BP: 132 / 80 Ordering Physician: Zuhair Rodriguez MD Referring Physician: Nikos Krishnamurthy M.D. Technologist: Manju Cuellar MERCEDES Room Number: 183 Indications: SHORTNESS OF BREATH Rhythm: Sinus Technical Quality: fair FINDINGS Left Ventricle Normal size left ventricle. Left ventricular wall thickness mildly increased. Normal left ventricular ejection fraction estimated at 60-65%. Abnormal relaxation filling pattern of the left ventricle for age (stage 1 diastolic dysfunction). Right Ventricle Normal right ventricular size and function. Right Atrium Normal right atrial size. Left Atrium Left atrial size at the upper limits of normal. Mitral Valve Mild mitral annular calcification. Trace to mild mitral regurgitation. Aortic Valve Diffuse thickening of the aortic valve cusps without reduced excursion. Tricuspid Valve Tricuspid valve is normal in structure and function. Mild tricuspid regurgitation. Pulmonic Valve Pulmonic valve not well visualized, grossly normal. Pericardium No pericardial effusion. Great Vessels Normal size aortic root. CONCLUSIONS Normal left and right ventricular systolic function with mild concentric hypertrophy. Type 1 diastolic dysfunction. No significant valvular abnormalities noted. Neto Bustos M.D. (Electronically Signed) Final Date: 08 August 2017 14:04 MEASUREMENTS (Male / Female) Normal Values 2D ECHO LV Diastolic Diameter PLAX 3.2 cm 4.2 - 5.9 / 3.9 - 5.3 cm LV Systolic Diameter PLAX 2.1 cm 2.1 - 4.0 cm LV Fractional Shortening PLAX 34.4 % 25 - 46 % LV Ejection Fraction 2D Teich 64.8 % IVS Diastolic Thickness 1.2 cm LVPW Diastolic Thickness 1.2 cm LV Relative Wall Thickness 0.8 RV Internal Dim ED PLAX 2.7 cm 1.9 - 3.8 cm LVOT Diameter 2.2 cm Aortic Root Diameter 3.5 cm LA Systolic Diameter LX 3.2 cm 3.0 - 4.0 / 2.7 - 3.8 cm LA Volume 25.0 cm 18 - 58 / 22 - 52 cm Ascending Aorta Diameter 3.6 cm DOPPLER AV Peak Velocity 110.0 cm/s AV Peak Gradient 4.8 mmHg AV Mean Velocity 75.1 cm/s AV Mean Gradient 3.0 mmHg AV Velocity Time Integral 18.9 cm LVOT Peak Velocity 100.0 cm/s LVOT Peak Gradient 4.0 mmHg LVOT Mean Velocity 62.0 cm/s LVOT Mean Gradient 2.0 mmHg LVOT Velocity Time Integral 19.3 cm LVOT Stroke Volume 73.4 cm AV Area Cont Eq vti 3.9 cm AV Area Cont Eq pk 3.5 cm MV Peak Velocity 116.0 cm/s MV Peak Gradient 5.4 mmHg MV Mean Velocity 65.9 cm/s MV Mean Gradient 2.0 mmHg Mitral E Point Velocity 67.5 cm/s Mitral A Point Velocity 115.0 cm/s Mitral E to A Ratio 0.6 MV PHT Velocity 91.1 cm/s MV Deceleration [place] 294.0 cm/s MV Pressure Half Time 93.0 ms MV Area PHT 2.4 cm MV Deceleration Time 415.0 ms PV Peak Velocity 77.5 cm/s PV Peak Gradient 2.4 mmHg PV Mean Velocity 53.7 cm/s PV Mean Gradient 1.0 mmHg PV Velocity Time Integral 14.8 cm LV E' Lateral Velocity 4.9 cm/s Mitral E to LV E' Lateral Ratio 13.9 LV E' Septal Velocity 5.9 cm/s Mitral E to LV E' Septal Ratio 11.3
== END 2017-08-08 11:50 | disposition home health service (06) | DRG 190 ==
LOC: ERH 14:32 → 1NO 16:04 → ERHI 16:04 → ENRESERV 17:14 → ENTRNSPT 18:02 → EDTRNSPTSTS 18:10 → EDTRNSPT 18:14 → 1NO 18:20 → CMPTRNSPT 18:38 → 1NO 19:01 → ENPENDDIS 08-08 11:01 → ENTRNSPT 08-08 11:17 → EDTRNSPT 08-08 11:43 → EDTRNSPTSTS 08-08 11:43 → 1NO 08-08 11:50 → CMPTRNSPT 08-08 12:09
PROVIDERS: Dermatology; Internal Medicine Interventional Cardiology; Physician Assistant; Student in an Organized Health Care Education/Training Program
DX: J44.0 Chronic obstructive pulmonary disease with (acute) lower respiratory infection (principal); J18.9 Pneumonia, unspecified organism; J96.01 Acute respiratory failure with hypoxia; Q21.0 Ventricular septal defect; J44.1 Chronic obstructive pulmonary disease with (acute) exacerbation; F10.20 Alcohol dependence, uncomplicated; E87.6 Hypokalemia; K21.9 Gastro-esophageal reflux disease without esophagitis; E78.5 Hyperlipidemia, unspecified; I10 Essential (primary) hypertension; Z88.6 Allergy status to analgesic agent; Z79.51 Long term (current) use of inhaled steroids; F32.9 Major depressive disorder, single episode, unspecified
CPT/HCPCS: 1NP; 36415; 36592; 71046; 81001; 82436; 87040; 87070; 87449; 87450; 87804; 87804-59; 93005; 93010; 93306; 99291; J0456; J0696; J1644; J2920; J2930; J3490; J7040; J7042; J7060

== ENCOUNTER 2017-08-19 22:03 | Emergency (ER) | payer OTHER ==
[~2017-08-19] VITALS: Ht 167.6 cm; Wt 69.9 kg
[~2017-08-19 22:03] MED LIST changes: +ALBUTEROL0.63 MG/1 INH/SOL; +AMOX-CLAV 875-1 EACH PO; +GUAIFENESIN DM S5 ML PO; +METOPROLOL TART25 M1 PO; +PREDNISONE20 M1 PO
[2017-08-19 22:05] VITALS: BP 134/80
[2017-08-19] MEDS ORDERED: NEO-POLYCIN EY3.5 GM OP (23:08)
[2017-08-19] MEDS ORDERED: PATADAY2.5 ML OPH (23:08)
--- NOTE | 2017-08-19 23:09 | ED EYE COMPLAINT ---
History of Present Illness General Chief Complaint: Eye Problems Stated Complaint: EYE ISSUES Source: patient, family Exam Limitations: no limitations Vital Signs & Intake/Output Vital Signs & Intake/Output Vital Signs Date Time Temp Pulse Resp B/P B/P Pulse O2 O2 Flow FiO2 Mean Ox Delivery Rate 08/19 2205 96.3 94 20 134/80 95 Room Air ED Intake and Output 08/20 0000 05 1200 Intake Total Output Total Balance Patient 154 lb Weight Weight Reported by Patient Measurement Method Allergies Coded Allergies: aspirin (Mild, GI UPSET 11/14/16) Reconcile Medications Albuterol Sulfate (Ventolin Hfa) 90 MCG HFA.AER.AD 1-2 PUF INH Q4H PRN ASTHMA (Reported) Albuterol Sulfate 0.63 MG/3 ML VIAL.NEB 1 Vial INH/JODY TIDPRN PRN Shorntess of breath . Amlodipine Besylate 5 MG TABLET 1 TAB PO DAILY HEART/BP (Reported) Amoxicillin/Clavulanate Potass (Amox-Clav 875-125 MG Tablet) 875 MG-125 MG TABLET 875 MG PO Q12 Pneumonia . Budesonide/Formoterol Fumarate (Symbicort 160-4.5 Mcg Inhaler) 160 MCG-4.5 MCG/ ACTUATION HFA.AER.AD 2 PUF INH BID ASTHMA (Reported) Cetirizine HCl 10 MG TABLET 1 TAB PO DAILY ALLERGIES (Reported) Citalopram Hydrobromide (Citalopram HBr) 40 MG TABLET 1 TAB PO DAILY MENTAL HEALTH (Reported) Fluticasone Propionate 50 MCG/ACTUATION SPRAY.SUSP 2 SPRAY NASB DAILY ALLERGIES (Reported) Guaifenesin/Dextromethorphan (Guaifenesin Dm Syrup) 100 MG-10 MG/5 ML SYRUP 10 ML PO Q6P PRN COUGH . Hydrochlorothiazide 25 MG TABLET 1 TAB PO DAILY DIURETIC/BP (Reported) Metoprolol Succinate 25 MG TAB 1 TAB PO DAILY HEART HEALTH (Reported) Montelukast Sodium 10 MG TABLET 1 TAB PO DAILY ALLERGIES/ASTHMA (Reported) Neomycin Varela/Bacitra/Polymyxin (Terell-Polycin Eye Ointment) 3.5 MG-400 UNIT-10,000 UNIT/GRAM OINT...G. 1 DROP OP BID Conjunctivitis Olopatadine HCl (Pataday) 0.2 % DROPS 1 GTT OPH DAILY Conjunctivitis Prednisone 20 MG TABLET 2 TAB PO DAILY COPD . Triage Note: PT TO TRIAGE C/O ITCHY AND BURNING EYES. PT STATES "I HAVE ALLERGIES." PT WENT AND BOUGHT DROPS AT STORE BUT REPORTS NOTHING IS HELPING. Triage Nurses Notes Reviewed? yes HPI: 76 yo M PMH HTN, HLD, Asthma, GERD presenting with eye drainage. Bilateral serous eye drainage for the last 2-3 weeks, daily, progressive, patient attributes to "allergies", associated itching and burning of eyes. Denies associated fevers, chills, eye pain, visual changes, chest pain, SOB, headache, neck pain, or focal neurologic Sx. Denies trauma or accidental injury to eyes. (Frederick Arias MD) Past History Travel History Traveled to [place] past 21 day No Medical History Any Pertinent Medical History? 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 Yes (Frederick Arias MD) Review of Systems Review of Systems Constitutional: Reports: no symptoms. Eyes: Reports: see HPI. Ear: Reports: no symptoms. Nose: Reports: no symptoms. Mouth: Reports: no symptoms. Throat: Reports: no symptoms. Respiratory: Reports: no symptoms. Cardiovascular: Reports: no symptoms. GI: Reports: no symptoms. Genitourinary: Reports: no symptoms. Musculoskeletal: Reports: no symptoms. Skin: Reports: no symptoms. Neurological/Psychological: Reports: no symptoms. Hematologic/Endocrine: Reports: no symptoms. Immunologic/Allergic: Reports: no symptoms. All Other Systems: Reviewed and Negative (Frederick Arias MD) Physical Exam General Appearance: well developed/nourished, mild distress General Inspection: normal inspection Conjunctiva/Sclera: injected General Inspection: normal inspection Conjunctiva/Sclera: injected Physical Exam Head: atraumatic Nose: normal inspection Mouth/Throat: normal mouth inspection Neck: normal inspection, supple Cardiovascular/Respiratory: normal breath sounds, regular rate/rhythm Neurologic/Psych: awake, alert, oriented x 3, normal mood/affect Skin: intact, normal color, warm/dry Comments: Occular: Mild bilateral conjunctival injection with serous drainage, PERRL, EOMI without pain, no visual field cuts (Juana GLOVER,Frederick) Progress Differential Diagnosis: corneal abrasion, corneal foreign body, conjunctivitis, detached retina, glaucoma, globe rupture, retinal art./v. occlusion Plan of Care: Physician MDM: 76 yo M PMH HTN, HLD, Asthma, GERD presenting with eye drainage. VSS, exam as above. DDx: Allergic Conjunctivitis, Viral conjunctivitis, Bacterial conjunctivitis, low concern for corneal abrasion, endopthalmitis, pre- septal or septal cellulitis. Will trial polytrim and pataday eyedrops, plan for close f/u with PMD for further evaluation and management. D/Charles with return precautions. (Juana GLOVER,Frederick) Departure Departure Disposition: HOME OR SELF CARE Condition: Stable Clinical Impression Primary Impression: Conjunctivitis Referrals: Anival Jaime APRN (PCP/Family) Additional Instructions: Take polytrim eye drops for the next 5 days. Use pataday eyedrops for allergic eye irritation. Follow up with your primary care physician in the next 2-3 days. Return to the ED for any new, worsening, or concerning symptoms. Departure Forms: Customer Survey General Discharge Information Prescriptions: Current Visit Scripts Neomycin Varela/Bacitra/Polymyxin (Terell-Polycin Eye Ointment) 1 DROP OP BID #1 BOT Olopatadine HCl (Pataday) 1 GTT OPH DAILY #1 BOT (Frederick Arias MD) PA/BOILERMAKER Co-Sign Statement Statement: ED Attending supervision documentation- [] I saw and evaluated the patient. I have also reviewed all the pertinent lab results and diagnostic results. I agree with the findings and the plan of care as documented in the PA's/BOILERMAKER's documentation. [x] I have reviewed the ED Record and agree with the PA's/BOILERMAKER's documentation. [] Additions or exceptions (if any) to the PAs/BOILERMAKER's note and plan are summarized below: [] (Nenita GLOVER,Abraham Griffin)
[2017-11-04] MEDS ORDERED: RW (23:26)
[2017-11-04] MEDS ORDERED: MOBIC15 M1 PO (23:26)
[2017-11-04] MEDS ORDERED: CYCLOBENZAPRINE5 M2 PO (23:26)
== END 2017-08-19 23:24 ==
LOC: ERH 22:03
DX: H10.9 Unspecified conjunctivitis (principal)